=== PATIENT | male | born 1965 | race American Indian/Alaskan Native ===

== ENCOUNTER 2017-11-02 16:54 | Emergency (ER) | payer SELFPAY ==
--- NOTE | 2017-11-02 18:05 | XRay Report ---
FINAL REPORT EXAM: XR CHEST ROUTINE 2V HISTORY: Shortness of breath TECHNIQUE: Frontal and lateral chest radiographs. PRIORS: 06/23/2017. FINDINGS: Cardiomegaly is again noted, mildly improved since the prior study. No pulmonary edema. No focal consolidation. No pleural effusion. No pneumothorax. No acute osseous abnormality. IMPRESSION: No acute cardiopulmonary process. Improved cardiomegaly.
[2017-11-02] MEDS ORDERED: DUONEB *Not for PRN Use IH ONE (18:35)
--- NOTE | 2017-11-02 18:40 | Emergency Department Report ---
ED Shortness of Breath HPI - General Chief Complaint: Dyspnea/Respdistress Stated Complaint: SOB/CHEST TIGHTNESS Time Seen by Provider: 11/02/17 18:16 Source: patient Mode of arrival: Ambulatory Limitations: No Limitations - History of Present Illness Initial Comments: Mr Lund is a 52 year-old man with hx of CHf, afib, COPD who presents with shortness of breath. has been having symptoms for the last few days. Gradualyl worsening. Has been having trouble sleeping, wakes up and needs to sit up to catch his breath. Today when he left the house around 2-3pm, felt light headed like he was going to pass out. Improved with sitting. No chest pain. Just shortness of breath. Is anticoagulated. Is about 10lbs above his dry weight. Endorses dry cough. No fevers. Good appetite. no leg swelling. Some stomach swelling. No SHRESTHA, no weakness, no tingling. MD Complaint: shortness of breath -: Gradual Severity: mild Improves With: rest, upright position Known History Of: COPD, congestive heart failure Treatments Prior to Arrival: none - Related Data Home Oxygen Therapy: Yes Home Oxygen Amount: 3 Liters Home Medications Medication Instructions Recorded Confirmed Last Taken Apixaban [Eliquis] 50 mg PO BID 06/24/17 11/02/17 11/02/17 AtorvaSTATin [Lipitor] 40 mg PO QHS 06/24/17 11/02/17 11/02/17 Carvedilol [Coreg] 25 mg PO BID 06/24/17 11/02/17 11/02/17 Famotidine [Heartburn Prevention] 20 mg PO DAILY 06/24/17 11/02/17 11/02/17 Isosorbide Dinitrate [Isordil 20 mg PO TID 06/24/17 11/02/17 11/02/17 Titradose] Spironolactone [Aldactone] 50 mg PO QDAY 06/24/17 11/02/17 11/02/17 hydrALAZINE [Apresoline TAB] 100 mg PO TID 06/24/17 11/02/17 11/02/17 Amlodipine Besylate 5 mg PO DAILY 11/02/17 11/02/17 11/02/17 Benzonatate [Tessalon Perle] 100 mg PO PRN PRN 11/02/17 11/02/1711/01/18 Fluticasone [Flonase] 50 mcg INNOSTRIL PRN 11/02/17 11/02/17 11/02/17 Furosemide [Lasix TAB] 40 mg PO DAILY 11/02/17 11/02/17 11/02/17 Nicotine [Nicotine Patch] 14 mg TD DAILY 11/02/17 11/02/17 11/01/17 Polyethylene Glycol 3350 17 gm PO DAILY 11/02/17 11/02/17 Unknown [Smoothlax] Sertraline [Zoloft] 100 mg PO QDAY 11/02/17 11/02/17 11/02/17 Symbicort 160-4.5 Mcg Inhaler 2 inhalation IH PRN PRN 11/02/17 11/02/17 11/02/17 Allergies Allergy/AdvReac Type Severity Reaction Status Date / Time No Known Allergies Allergy Unverified 06/23/17 17:32 ED Review of Systems ROS: Stated complaint: SOB/CHEST TIGHTNESS Other details as noted in HPI Comment: All other systems reviewed and negative ED Past Medical Hx - Past Medical History Previous Medical History?: Yes Hx Congestive Heart Failure: Yes Hx Diabetes: No Hx Asthma: No Hx COPD: Yes (3L per [place]) Additional medical history: irregular heart rythm - Surgical History Past Surgical History?: No - Social History Smoking Status: Former Smoker Substance Use Type: Alcohol - Medications Home Medications: Home Medications Medication Instructions Recorded Confirmed Last Taken Type Apixaban [Eliquis] 50 mg PO BID 06/24/17 11/02/17 11/02/17 History AtorvaSTATin [Lipitor] 40 mg PO QHS 06/24/17 11/02/17 11/02/17 History Carvedilol [Coreg] 25 mg PO BID 06/24/17 11/02/17 11/02/17 History Famotidine [Heartburn Prevention] 20 mg PO DAILY 06/24/17 11/02/17 11/02/17 History Isosorbide Dinitrate [Isordil 20 mg PO TID 06/24/17 11/02/17 11/02/17 History Titradose] Spironolactone [Aldactone] 50 mg PO QDAY 06/24/17 11/02/17 11/02/17 History hydrALAZINE [Apresoline TAB] 100 mg PO TID 06/24/17 11/02/17 11/02/17 History Amlodipine Besylate 5 mg PO DAILY 11/02/17 11/02/17 11/02/17 History Benzonatate [Tessalon Perle] 100 mg PO PRN PRN 11/02/17 11/02/17 11/01/17 History Fluticasone [Flonase] 50 mcg INNOSTRIL PRN 11/02/17 11/02/17 11/02/17 History Furosemide [Lasix TAB] 40 mg PO DAILY 11/02/17 11/02/17 11/02/17 History Nicotine [Nicotine Patch] 14 mg TD DAILY 11/02/17 11/02/17 11/01/17 History Polyethylene Glycol 3350 17 gm PO DAILY 11/02/17 11/02/17 Unknown History [Smoothlax] Sertraline [Zoloft] 100 mg PO QDAY 11/02/17 11/02/17 11/02/17 History Symbicort 160-4.5 Mcg Inhaler 2 inhalation IH PRN PRN 11/02/17 11/02/17 History ED Physical Exam - General Limitations: No Limitations General appearance: alert, in no apparent distress - Head Head exam: Present: atraumatic, normocephalic - Eye Eye exam: Present: normal appearance - ENT ENT exam: Present: normal exam, mucous membranes moist - Neck Neck exam: Present: normal inspection. Absent: tenderness - Respiratory Respiratory exam: Present: other (Wheeze R upper larios, otherwise good air movement). Absent: rales, accessory muscle use - Cardiovascular Cardiovascular Exam: Present: regular rate, normal rhythm. Absent: systolic murmur, diastolic murmur, rubs, gallop - GI/Abdominal GI/Abdominal exam: Present: soft, distended. Absent: tenderness, guarding - Rectal Rectal exam: Present: deferred - Extremities Exam Extremities exam: Present: normal inspection. Absent: pedal edema, calf tenderness - Back Exam Back exam: Present: normal inspection - Neurological Exam Neurological exam: Present: alert, oriented X3 - Psychiatric Psychiatric exam: Present: normal affect, normal mood - Skin Skin exam: Present: warm, dry, intact, normal color. Absent: rash ED Course Vital Signs 11/02/17 11/02/17 11/02/17 16:58 18:55 19:15 Temperature 97.6 F 98 F Pulse Rate 72 64 Pulse Rate [ Anterior Bilateral Throughout] Respiratory 19 Rate Respiratory Rate [Anterior Bilateral Throughout] Blood Pressure 105/46 Blood Pressure 126/80 [Left] O2 Sat by Pulse 92 98 99 Oximetry 11/02/17 11/02/17 11/02/17 19:35 19:45 20:00 Temperature Pulse Rate 56 L Pulse Rate [ 65 70 Anterior Bilateral Throughout] Respiratory 20 Rate Respiratory 20 18 Rate [Anterior Bilateral Throughout] Blood Pressure 132/67 Blood Pressure [Left] O2 Sat by Pulse 86 Oximetry ED Medical Decision Making - Lab Data Result diagrams: 11/02/17 19:09 11/02/17 19:09 Lab Results 11/02/17 11/02/17 11/02/17 Range/Units 19:09 19:09 19:09 WBC 9.3 (4.5-11.0) K/mm3 RBC 5.03 (3.65-5.03) M/mm3 Hgb 13.7 (11.8-15.2) gm/dl Hct 42.8 (35.5-45.6) % MCV 85 (84-94) fl MCH 27 L (28-32) pg MCHC 32 (32-34) % RDW 17.1 H (13.2-15.2) % Plt Count 137 L (140-440) K/mm3 Lymph % (Auto) 15.8 (13.4-35.0) % [place] % (Auto) 8.4 H (0.0-7.3) % Eos % (Auto) 1.8 (0.0-4.3) % Baso % (Auto) 0.5 (0.0-1.8) % Lymph # 1.5 (1.2-5.4) K/mm3 [place] # 0.8 (0.0-0.8) K/mm3 Eos # 0.2 (0.0-0.4) K/mm3 Baso # 0.0 (0.0-0.1) K/mm3 Seg Neutrophils % 73.5 H (40.0-70.0) % Seg Neutrophils # 6.8 (1.8-7.7) K/mm3 PT 14.0 (12.2-14.9) Sec. INR 1.03 (0.87-1.13) APTT 30.3 (24.2-36.6) Sec. Sodium (137-145) mmol/L Potassium (3.6-5.0) mmol/L Chloride (98-107) mmol/L Carbon Dioxide (22-30) mmol/L Anion Gap mmol/L BUN (9-20) mg/dL Creatinine (0.8-1.5) mg/dL Estimated GFR ml/min BUN/Creatinine Ratio % Glucose (75-100) mg/dL Calcium (8.4-10.2) mg/dL Magnesium (1.7-2.3) mg/dL Total Bilirubin (0.1-1.2) mg/dL AST (5-40) units/L ALT (7-56) units/L Alkaline Phosphatase (35-129) units/L Troponin T 0.029 (0.00-0.029) ng/mL NT-Pro-B Natriuret Pep (0-900) pg/mL Total Protein (6.3-8.2) g/dL Albumin (3.9-5) g/dL Albumin/Globulin Ratio % //18 Range/Units 19:09 WBC (4.5-11.0) K/mm3 RBC (3.65-5.03) M/mm3 Hgb (11.8-15.2) gm/dl Hct (35.5-45.6) % MCV (84-94) fl MCH (28-32) pg MCHC (32-34) % RDW (13.2-15.2) % Plt Count (140-440) K/mm3 Lymph % (Auto) (13.4-35.0) % [place] % (Auto) (0.0-7.3) % Eos % (Auto) (0.0-4.3) % Baso % (Auto) (0.0-1.8) % Lymph # (1.2-5.4) K/mm3 [place] # (0.0-0.8) K/mm3 Eos # (0.0-0.4) K/mm3 Baso # (0.0-0.1) K/mm3 Seg Neutrophils % (40.0-70.0) % Seg Neutrophils # (1.8-7.7) K/mm3 PT (12.2-14.9) Sec. INR (0.87-1.13) APTT (24.2-36.6) Sec. Sodium 143 (137-145) mmol/L Potassium 4.5 (3.6-5.0) mmol/L Chloride 103.8 (98-107) mmol/L Carbon Dioxide 24 (22-30) mmol/L Anion Gap 20 mmol/L BUN 48 H (9-20) mg/dL Creatinine 2.0 H (0.8-1.5) mg/dL Estimated GFR 43 ml/min BUN/Creatinine Ratio 24 % Glucose 94 (75-100) mg/dL Calcium 10.0 (8.4-10.2) mg/dL Magnesium 1.90 (1.7-2.3) mg/dL Total Bilirubin 0.50 (0.1-1.2) mg/dL AST 39 (5-40) units/L ALT 58 H (7-56) units/L Alkaline Phosphatase 115 (35-129) units/L Troponin T (0.00-0.029) ng/mL NT-Pro-B Natriuret Pep 1605 H (0-900) pg/mL Total Protein 7.2 (6.3-8.2) g/dL Albumin 4.1 (3.9-5) g/dL Albumin/Globulin Ratio 1.3 % - EKG Data -: EKG Interpreted by Nv - EKG Data 1702; HR 66, sinus, normal axis, QTc 458, no ST changes concerning for acute ischemia 2014; HR 62, sinus, normal axis, QTc 478, no St changes concerning for acute ischemia - Radiology Data Radiology results: report reviewed, image reviewed - Medical Decision Making Mr Lund is a 52 year-old man with hx of COPD, CHF who presents with shortness of breath. Some symptoms consistent with fluid retention. Is on his baseline 3L home O2 with normal VS. Exam with mild wheezing on R. No rales. Suspect this is CHF vs COPD vs ACS. EKG and trop non-ischemic. CXR clear. Labs with Cr elevated but at baseline. Elevated BNP with normal K. Repeat EKG and trop neg. Reports feeling better after breathing treatment, has albuterol at home as well. Has pcp Appt in 6 days. Given 80mg IV lasix here. Will recommend he take 120mg lasix (home dose 80) every other day until he sees his pcp. This will be Wednesday, Wednesday and Wednesday. Will give RX for 20meq KCl at home these same days as well. Given care instructions and return precautions. Safe for DC to home. Critical care attestation.: If time is entered above; I have spent that time in minutes in the direct care of this critically ill patient, excluding procedure time. ED Disposition Clinical Impression: Wheezing Acute exacerbation of CHF (congestive heart failure) Qualifiers: Heart failure type: unspecified Qualified Code(s): I50.9 - Heart failure, unspecified CHF (congestive heart failure) Qualifiers: Heart failure type: unspecified Heart failure chronicity: unspecified Qualified Code(s): I50.9 - Heart failure, unspecified Disposition: DC-01 TO HOME OR SELFCARE Is pt being admited?: No Does the pt Need Aspirin: No Condition: Stable Additional Instructions: Please take 1.5 tablets of your lasix on Wednesday, Wednesday and Wednesday. On these days, please also take a potassium supplement prescription we have provided. Please urgently return for chest pain, increased difficulty breathing. Please see your doctor on November 09 as planned. Referrals: PRIMARY CARE, [Primary Care Provider] - 3-5 Days
[2017-11-02 19:34] LABS: Basophils % (Auto) 0.5 % (0.0-1.8); Eosinophils # (Auto) 0.2 K/mm3 (0.0-0.4); Eosinophils % (Auto) 1.8 % (0.0-4.3); Hematocrit 42.8 % (35.5-45.6); Hemoglobin 13.7 gm/dl (11.8-15.2); Lymphocytes # (Auto) 1.5 K/mm3 (1.2-5.4); Lymphocytes % (Auto) 15.8 % (13.4-35.0); Mean Corpuscular HGB Conc 32 % (32-34); Mean Corpuscular Hemoglobin 27 pg (28-32); Mean Corpuscular Volume 85 fl (84-94); Monocytes # (Auto) 0.8 K/mm3 (0.0-0.8); Monocytes % (Auto) 8.4 % (0.0-7.3); Platelet Count 137 K/mm3 (140-440); Red Blood Count 5.03 M/mm3 (3.65-5.03); Red Cell Distribution Width 17.1 % (13.2-15.2)
[2017-11-02 19:44] LABS: INR 1.03 (0.87-1.13)
[2017-11-02 19:45] LABS: Partial Thromboplastin Time 30.3 Sec. (24.2-36.6)
[2017-11-02 19:50] LABS: Albumin 4.1 g/dL (3.9-5)
[2017-11-02] MEDS ORDERED: LASIX IV ONE (20:25)
[2017-11-02 22:01] VITALS: BP 137/68
== END 2017-11-02 22:17 | disposition home or self-care (01) ==
LOC: ED 16:54
DX: I11.0 Hypertensive heart disease with heart failure (principal); I50.9 Heart failure, unspecified; J44.9 Chronic obstructive pulmonary disease, unspecified; Z87.891 Personal history of nicotine dependence
CPT/HCPCS: 36415; 71046; 80053; 83735; 83880; 84484; 85025; 85610; 85730; 93005; 93010; 94640; 96374; 99284; J1940

== ENCOUNTER 2018-09-14 19:24 | Inpatient (IN) | payer MEDICAID ==
[2018-09-14] MEDS ORDERED: PROVENTIL IH ONE (20:26)
[2018-09-14] MEDS ORDERED: ATROVENT IH ONE (20:26)
[2018-09-14] MEDS ORDERED: SOLU-Medrol IV ONE (20:26)
[2018-09-14] MEDS ORDERED: LASIX IV ONE (20:27)
--- NOTE | 2018-09-14 20:31 | Emergency Department Report ---
ED Shortness of Breath HPI - General Chief Complaint: Dyspnea/Respdistress Stated Complaint: MALI Time Seen by Provider: 09/14/18 20:22 Source: patient Mode of arrival: Ambulatory Limitations: No Limitations - History of Present Illness Initial Comments: Patient is 53 years old male with history of COPD and congestive heart failure. Patient presented to the ER complaining of shortness of breath, orthopnea since 2 days ago. Patient stated that he is having trouble sleeping last night. Patient stated that he is out of his oxygen. Patient is taking 3 L of oxygen. She denies any chest pain. No fever chills. MD Complaint: shortness of breath, cough - Related Data Home Medications Medication Instructions Recorded Confirmed Last Taken Apixaban [Eliquis] 50 mg PO BID 06/24/17 11/02/17 11/02/17 AtorvaSTATin [Lipitor] 40 mg PO QHS 06/24/17 11/02/17 11/02/17 Carvedilol [Coreg] 25 mg PO BID 06/24/17 11/02/17 11/02/17 Famotidine [Heartburn Prevention] 20 mg PO DAILY 06/24/17 11/02/17 11/02/17 Isosorbide Dinitrate [Isordil 20 mg PO TID 06/24/17 11/02/17 11/02/17 Titradose] Spironolactone [Aldactone] 50 mg PO QDAY 06/24/17 11/02/17 11/02/17 hydrALAZINE [Apresoline TAB] 100 mg PO TID 06/24/17 11/02/17 11/02/17 Amlodipine Besylate 5 mg PO DAILY 11/02/17 11/02/17 11/02/17 Benzonatate [Tessalon Perle] 100 mg PO PRN PRN 11/02/17 11/02/17 11/01/17 Fluticasone [Flonase] 50 mcg INNOSTRIL PRN 11/02/17 11/02/17 11/02/17 Furosemide [Lasix TAB] 40 mg PO DAILY 11/02/17 11/02/17 11/02/17 Nicotine [Nicotine Patch] 14 mg TD DAILY 11/02/17 11/02/17 11/01/17 Polyethylene Glycol 3350 17 gm PO DAILY 11/02/17 11/02/17 Unknown [Smoothlax] Sertraline [Zoloft] 100 mg PO QDAY 11/02/17 11/02/17 11/02/17 Symbicort 160-4.5 Mcg Inhaler 2 inhalation IH PRN PRN 11/02/17 11/02/17 11/02/17 Previous Rx's Medication Instructions Recorded Last Taken Type Potassium Chloride [K-Dur] 20 meq PO QDAY 3 Days #3 tablet 11/02/17 Unknown Rx Allergies Allergy/AdvReac Type Severity Reaction Status Date / Time No Known Allergies Allergy Unverified 06/23/17 17:32 ED Review of Systems ROS: Stated complaint: MALI Other details as noted in HPI Comment: All other systems reviewed and negative Constitutional: denies: chills, fever Respiratory: cough, orthopnea, shortness of breath, SOB with exertion, SOB at rest, wheezing Cardiovascular: denies: chest pain, palpitations Gastrointestinal: denies: abdominal pain, nausea Musculoskeletal: denies: back pain Neurological: denies: headache, weakness, numbness, paresthesias, confusion ED Past Medical Hx - Past Medical History Hx Congestive Heart Failure: Yes Hx Diabetes: No Hx Asthma: No Hx COPD: Yes (3L per [place]) Additional medical history: irregular heart rythm - Social History Smoking Status: Former Smoker Substance Use Type: None - Medications Home Medications: Home Medications Medication Instructions Recorded Confirmed Last Taken Type Apixaban [Eliquis] 50 mg PO BID 06/24/17 11/02/17 11/02/17 History AtorvaSTATin [Lipitor] 40 mg PO QHS 06/24/17 11/02/17 11/02/17 History Carvedilol [Coreg] 25 mg PO BID 06/24/17 11/02/17 11/02/17 History Famotidine [Heartburn Prevention] 20 mg PO DAILY 06/24/17 11/02/17 11/02/17 History Isosorbide Dinitrate [Isordil 20 mg PO TID 06/24/17 11/02/17 11/02/17 History Titradose] Spironolactone [Aldactone] 50 mg PO QDAY 06/24/17 11/02/17 11/02/17 History hydrALAZINE [Apresoline TAB] 100 mg PO TID 06/24/17 11/02/17 11/02/17 History Amlodipine Besylate 5 mg PO DAILY 11/02/17 11/02/17 11/02/17 History Benzonatate [Tessalon Perle] 100 mg PO PRN PRN 11/02/17 11/02/17 11/01/17 History Fluticasone [Flonase] 50 mcg INNOSTRIL PRN 11/02/17 11/02/17 11/02/17 History Furosemide [Lasix TAB] 40 mg PO DAILY 11/02/17 11/02/17 11/02/17 History Nicotine [Nicotine Patch] 14 mg TD DAILY 11/02/17 11/02/17 11/01/17 History Polyethylene Glycol 3350 17 gm PO DAILY 11/02/17 11/02/17 Unknown History [Smoothlax] Potassium Chloride [K-Dur] 20 meq PO QDAY 3 Days #3 tablet 11/02/17 Unknown Rx Sertraline [Zoloft] 100 mg PO QDAY 11/02/17 11/02/17 11/02/17 History Symbicort 160-4.5 Mcg Inhaler 2 inhalation IH PRN PRN 11/02/17 11/02/17 11/02/17 History ED Physical Exam - General Limitations: No Limitations General appearance: alert, in distress - Head Head exam: Present: atraumatic, normocephalic, normal inspection - Eye Eye exam: Present: normal appearance - ENT ENT exam: Present: normal exam, normal orophraynx, mucous membranes moist - Neck Neck exam: Present: normal inspection, full ROM. Absent: tenderness, meningismus, lymphadenopathy, thyromegaly - Respiratory Respiratory exam: Present: respiratory distress, wheezes, rales, rhonchi, accessory muscle use, decreased breath sounds, prolonged expiratory. Absent: stridor - Cardiovascular Cardiovascular Exam: Present: regular rate, normal rhythm, normal heart sounds - GI/Abdominal GI/Abdominal exam: Present: soft, normal bowel sounds. Absent: distended, t enderness, guarding, rebound, rigid, bruit, pulsatile mass - Extremities Exam Extremities exam: Present: normal inspection, full ROM, normal capillary refill, pedal edema. Absent: calf tenderness - Back Exam Back exam: Present: normal inspection, full ROM. Absent: tenderness, CVA tenderness (R), CVA tenderness (L), muscle spasm, paraspinal tenderness, vertebral tenderness - Neurological Exam Neurological exam: Present: alert, oriented X3, CN II-XII intact - Skin Skin exam: Present: warm, intact, normal color ED Course Vital Signs 09/14/18 09/14/18 09/14/18 19:32 20:20 20:54 Temperature 98.0 F 98 F Pulse Rate 72 71 Pulse Rate [ 72 Anterior Bilateral Throughout] Respiratory 22 19 Rate Respiratory 27 H Rate [Anterior Bilateral Throughout] Blood Pressure 144/47 Blood Pressure 136/67 [Right] O2 Sat by Pulse 89 94 Oximetry 09/14/18 21:41 Temperature Pulse Rate Pulse Rate [ 90 Anterior Bilateral Throughout] Respiratory Rate Respiratory 28 H Rate [Anterior Bilateral Throughout] Blood Pressure Blood Pressure [Right] O2 Sat by Pulse Oximetry ED Medical Decision Making - Lab Data Result diagrams: 09/14/18 20:38 09/14/18 20:38 - EKG Data -: EKG Interpreted by Wy EKG shows normal: sinus rhythm Rate: normal - EKG Data Interpretation: no acute changes - Radiology Data Radiology results: report reviewed Chest x-ray showed pulmonary congestion. - Medical Decision Making Patient is 53 years old male with history of COPD and congestive heart failure. Patient presented to the ER complaining of shortness of breath, orthopnea since 2 days ago. Patient stated that he is having trouble sleeping last night. Patient stated that he is out of his oxygen. Patient is taking 3 L of oxygen. She denies any chest pain. No fever chills. Patient EKG didn't show any ST elevation. Chest x-ray showed pulmonary c ongestion consistent with CHF exacerbation. Patient troponin slightly elevated. I discussed the patient is Dr. Kang. I discussed the patient is Dr. Naty Arango, she agreed to admit the patient to medical service. Critical Care Time: Yes Critical care time in (mins) excluding proc time.: 30 Critical care attestation.: If time is entered above; I have spent that time in minutes in the direct care of this critically ill patient, excluding procedure time. ED Disposition Clinical Impression: Elevated troponin, CHF exacerbation Disposition: OP ADMIT IP TO THIS HOSP Is pt being admited?: Yes Condition: Stable
[2018-09-14 21:11] LABS: Basophils % (Auto) 0.3 % (0.0-1.8); Eosinophils # (Auto) 0.1 K/mm3 (0.0-0.4); Eosinophils % (Auto) 1.7 % (0.0-4.3); Hematocrit 41.7 % (35.5-45.6); Hemoglobin 13.3 gm/dl (11.8-15.2); Lymphocytes # (Auto) 1.2 K/mm3 (1.2-5.4); Mean Corpuscular HGB Conc 32 % (32-34); Mean Corpuscular Volume 85 fl (84-94); Monocytes # (Auto) 0.7 K/mm3 (0.0-0.8); Platelet Count 188 K/mm3 (140-440); Red Blood Count 4.92 M/mm3 (3.65-5.03); Red Cell Distribution Width 18.3 % (13.2-15.2)
--- NOTE | 2018-09-14 21:11 | XRay Report ---
PROCEDURE: XR CHEST 1V AP TECHNIQUE: Chest radiograph single view. HISTORY: Dyspnea COMPARISONS: November 02, 2017 . FINDINGS: Heart: Mild cardiomegaly is noted. Mediastinum/Vessels: There is mild degree pulmonary venous congestion. Lungs/Pleural space: Normal. Bony thorax: No acute osseous abnormality. Life support devices: None. IMPRESSION: Mild degree cardiomegaly with mild degree pulmonary venous congestion. This document is electronically signed by Dejuan Briggs MD., Sep 14 2018 09:09:32 PM ET
[2018-09-14 21:18] LABS: INR 1.22 (0.87-1.13)
[2018-09-14 21:25] LABS: Calcium 9.5 mg/dL (8.4-10.2)
[2018-09-14] MEDS ORDERED: BABY ASPIRIN PO ONE (22:15)
[2018-09-14 22:41] LABS: Chol/HDL Ratio 2.94 %
--- NOTE | 2018-09-14 23:26 | History and Physical Report ---
History of Present Illness Date of examination: 09/14/18 History of present illness: 53 year-old man with history of hypertension, A. fib, CHF, COPD and chronic kidney disease, comes to emergency room with complaints of shortness of breath, PND, orthropnea since yesterday. He went out today without wearing his oxygen, his symptoms worsen, came to the emergency room for further evaluation. Non- Compliant with fluid restriction Review Of Systems: Constitutional: no weight loss Ears, eyes, nose, mouth and throat: no nasal congestion, no nasal discharge, no sinus pressure, blurry vision, diplopia Neck: No neck pain or rigidity. Cardiovascular: No palpitations, chest pain Respiratory: No cough Gastrointestinal: No abdominal pain, hematochezia Genitourinary : no dysuria, frequency , hematuria Musculoskeletal: no muscle ache Integumentary: no rash, no pruritis Neurological: no parathesias, focal weakness Endocrine: no cold or heat intolerance, no polyuria or polydipsia Hematologic/Lymphatic: no easy bruising, no easy bleeding, no gland swelling Allergic/Immunologic: no urticaria, no angioedema. PAST MEDICAL HISTORY: CHF, A. fib, hypertension, COPD,chronic kidney disease PAST SURGICAL HISTORY:none SOCIAL HISTORY:1 pack a day, social alcohol, no drugs FAMILY HISTORY:Hypertension Medications and Allergies Allergies Allergy/AdvReac Type Severity Reaction Status Date / Time No Known Allergies Allergy Unverified 06/23/17 17:32 Home Medications Medication Instructions Recorded Confirmed Last Taken Type Apixaban [Eliquis] 50 mg PO BID 06/24/17 11/02/17 11/02/17 History AtorvaSTATin [Lipitor] 40 mg PO QHS 06/24/17 11/02/17 11/02/17 History Carvedilol [Coreg] 25 mg PO BID 06/24/17 11/02/17 11/02/17 History Famotidine [Heartburn Prevention] 20 mg PO DAILY 06/24/17 11/02/17 11/02/17 History Isosorbide Dinitrate [Isordil 20 mg PO TID 06/24/17 11/02/17 11/02/17 History Titradose] Spironolactone [Aldactone] 50 mg PO QDAY 06/24/17 11/02/17 11/02/17 History hydrALAZINE [Apresoline TAB] 100 mg PO TID 06/24/17 11/02/17 11/02/17 History Amlodipine Besylate 5 mg PO DAILY 11/02/17 11/02/17 11/02/17 History Benzonatate [Tessalon Perle] 100 mg PO PRN PRN 11/02/17 11/02/17 11/01/17 History Fluticasone [Flonase] 50 mcg INNOSTRIL PRN 11/02/17 11/02/17 11/02/17 History Furosemide [Lasix TAB] 40 mg PO DAILY 11/02/17 11/02/17 11/02/17 History Nicotine [Nicotine Patch] 14 mg TD DAILY 11/02/17 11/02/17 11/01/17 History Polyethylene Glycol 3350 17 gm PO DAILY 11/02/17 11/02/17 Unknown History [Smoothlax] Potassium Chloride [K-Dur] 20 meq PO QDAY 3 Days #3 tablet 11/02/17 Unknown Rx Sertraline [Zoloft] 100 mg PO QDAY 11/02/17 11/02/17 11/02/17 History Symbicort 160-4.5 Mcg Inhaler 2 inhalation IH PRN PRN 11/02/17 11/02/17 11/02/17 History Exam - Physical Exam Narrative exam: Gen. appearance: Patient lying in bed, no apparent distress HEENT: Normocephalic, atraumatic, pupils equally round and reactive to light, extraocular movement intact, and no sclericterus,. No JVD or thyromegaly or nodule,neck supple, no carotid bruit ,mucous membranes moist, no exudate or erythema Heart: S1, S2, regular rate and rhythm Lungs:crackles auscultation bilaterally, breathing comfortable Abdomen: Positive bowel sounds, nontender, nondistended, no organomegaly Extremity: trace edema, no cyanosis, clubbing Skin: No rash, nodules, warm, dry Neuro: Oriented 3, cranial nerves II-12 intact, speech is fluent, motor and sensory intact - Constitutional Vitals: Temp Pulse Resp BP Pulse Ox 97.5 F L 67 14 133/77 95 09/14/18 22:56 09/14/18 22:56 09/14/18 22:56 09/14/18 22:56 09/14/18 22:56 Results - Labs CBC & Chem 7: 09/14/18 20:38 09/14/18 20:38 Labs: Abnormal lab results 09/14/18 09/14/18 09/14/18 Range/Units 20:38 20:38 20:38 MCH 27 L (28-32) pg RDW 18.3 H (13.2-15.2) % [place] % (Auto) 9.0 H (0.0-7.3) % Seg Neutrophils % 73.0 H (40.0-70.0) % PT 16.2 H (12.2-14.9) Sec. INR 1.22 H (0.87-1.13) Sodium 146 H (137-145) mmol/L Potassium 3.5 L (3.6-5.0) mmol/L BUN 34 H (9-20) mg/dL Creatinine 2.1 H (0.8-1.5) mg/dL Glucose 149 H (75-100) mg/dL Troponin T 0.033 H (0.00-0.029) ng/mL HDL Cholesterol 34 L (40-59) mg/dL - Imaging and Cardiology EKG: report reviewed Chest x-ray: report reviewed Assessment and Plan Assessment CHF, acute on chronic Elevated troponin A. fib Hypertension COPD chronic kidney disease Plan Admit to medicine Diurese with IV Lasix Monitor I's and O's, daily weights Check cardiac enzymes, echo, consult cardiology Start beta gary, aspirin, hold JAILYN inhibitor Continue outpatient medications DVT prophylaxis
[2018-09-14] MEDS ORDERED: ZOFRAN IV PRN (23:59)
[2018-09-14] MEDS ORDERED: SODIUM CHLORIDE FLUSH SYRINGE 10 ML IV PRN (23:59)
[2018-09-14] MEDS ORDERED: TYLENOL PO PRN (23:59)
[2018-09-15 01:47] LABS: Creatine Kinase MB 2.1 ng/mL (0.0-4.0)
[2018-09-15] MEDS: LASIX IV SCH ×2 (05:58→17:51)
[2018-09-15 07:26] LABS: Hematocrit 45.2 % (35.5-45.6); Hemoglobin 14.4 gm/dl (11.8-15.2); Mean Corpuscular HGB Conc 32 % (32-34); Mean Corpuscular Volume 85 fl (84-94); Platelet Count 211 K/mm3 (140-440); Red Blood Count 5.32 M/mm3 (3.65-5.03); Red Cell Distribution Width 18.1 % (13.2-15.2)
[2018-09-15 07:39] LABS: Creatine Kinase MB 2.7 ng/mL (0.0-4.0)
[2018-09-15 08:54] LABS: Basophils % (Manual) 0 % (0.0-1.8); Eosinophils % (Manual) 0 % (0.0-4.3); Giant Platelets Rare; Platelet Estimate Consistent w Auto; Total Cells Counted 100
[2018-09-15] MEDS ORDERED: LOVENOX SUB-Q SCH ×2 (10:00)
[2018-09-15] MEDS: SODIUM CHLORIDE FLUSH SYRINGE 10 ML IV SCH ×2 (10:00→22:33)
[2018-09-15] MEDS ORDERED: TESSALON PERLES PO PRN (10:00)
[2018-09-15] MEDS ORDERED: SYMBICORT IH PRN (10:58)
[2018-09-15] MEDS ORDERED: NON-FORMULARY (Amlodipine Besylate 5 MG) PO SCH (11:00)
[2018-09-15] MEDS ORDERED: FLONASE NS SCH (11:00)
--- NOTE | 2018-09-15 13:22 | Consultation ---
History of Present Illness Consult date: 09/15/18 Requesting physician: NUBIA CROCKER Consult reason: abnormal cardiac enzymes, congestive heart failure History of present illness: the pt is a 53 YO male with a past medical history significant for CMP with EF 25%, HFrEF, paroxysmal atrial flutter on Eliquis, HTN, CKD, COPD on home O2, newly diagnosed SADE (has not had CPAP set up at home yet), pulmonary HTN, tobacco use, prior ETOH use and cocaine use. He has been seen by our practice on prior admissions and states that he is regularly followed by Dr. Markell Garcia with [facility]. He presented with complaints of SOB, LUCAS, PND and orthopnea for 2 days prior to arrival. He also reports abdominal swelling for the past several days. He denies any chest pain, palpitations, n/v, diaphoresis, dizziness or syncope. Pt reports compliance with his home medication regimen and denies any recent ETOH or illicit drug use. Echo done at [place] 05/29/2017 showed EF 25%, AV sclerosis, mod dilated LA, mod LVH, small pericardial effusion, mod dilated RA, grade 3 diastolic dysfunction, mild TR, mild MVR, moderately enlarged RV cavity size, moderately reduced RV systolic function, pulmonary HTN with RVSP 56.7mmHg. Pt underwent pharmacologic MPI stress test at [place] in 04/2017 which was negative for ischemia, EF 35%. Of note, pt was discharged from [facility] in 06/[address]. He states that he temporarily moved to [place] after that hospitalization and was told by a faculty neuropsychologist in [place] that his heart function improved on f/u echo and Life Vest was discontinued. He believes his last echo was in [place] in 10/2017. Past History Past Medical History: atrial fib, COPD, heart failure, hypertension, other (SADE) Medications and Allergies Allergies Allergy/AdvReac Type Severity Reaction Status Date / Time No Known Allergies Allergy Unverified 06/23/17 17:32 Home Medications Medication Instructions Recorded Confirmed Last Taken Type Apixaban [Eliquis] 50 mg PO BID 06/24/17 09/15/18 11/02/17 History AtorvaSTATin [Lipitor] 40 mg PO QHS 06/24/17 09/15/18 11/02/17 History Carvedilol [Coreg] 25 mg PO BID 06/24/17 09/15/18 11/02/17 History Famotidine [Heartburn Prevention] 20 mg PO DAILY 06/24/17 09/15/18 11/02/17 History Isosorbide Dinitrate [Isordil 20 mg PO TID 06/24/17 09/15/18 11/02/17 History Titradose] Spironolactone [Aldactone] 50 mg PO QDAY 06/24/17 09/15/18 11/02/17 History hydrALAZINE [Apresoline TAB] 100 mg PO TID 06/24/17 09/15/18 11/02/17 History Amlodipine Besylate 5 mg PO DAILY 11/02/17 09/15/18 11/02/17 History Benzonatate [Tessalon Perle] 100 mg PO PRN PRN 11/02/17 09/15/18 11/01/17 History Fluticasone [Flonase] 50 mcg INNOSTRIL PRN 11/02/17 09/15/18 11/02/17 History Furosemide [Lasix TAB] 40 mg PO DAILY 11/02/17 09/15/18 11/02/17 History Nicotine [Nicotine Patch] 14 mg TD DAILY 11/02/17 09/15/18 11/01/17 History Polyethylene Glycol 3350 17 gm PO DAILY 11/02/17 09/15/18 Unknown History [Smoothlax] Potassium Chloride [K-Dur] 20 meq PO QDAY 3 Days #3 tablet 11/02/17 09/15/18 Unknown Rx Sertraline [Zoloft] 100 mg PO QDAY 11/02/17 09/15/18 11/02/17 History Symbicort 160-4.5 Mcg Inhaler 2 inhalation IH PRN PRN 11/02/17 09/15/18 11/02/17 History Active Meds: Active Medications Acetaminophen (Tylenol) 650 mg PO Q4H PRN PRN Reason: Pain MILD(1-3)/Fever >100.5/SHRESTHA Amlodipine Besylate (Norvasc) 5 mg PO QDAY RONDA Apixaban (Eliquis) 5 mg PO BID RONDA; Protocol Arformoterol Tartrate (Brovana Nebu) 15 mcg IH Q12HRT RONDA Atorvastatin Calcium (Lipitor) 40 mg PO QHS RONDA Benzonatate (Tessalon Perles) 100 mg PO Q8H PRN PRN Reason: Cough Budesonide (Pulmicort) 1 mg IH Q12HRT [facility] Famotidine (Pepcid) 20 mg PO DAILY [facility] Fluticasone Propionate (Flonase) 50 mcg NS PRN [facility] Furosemide (Lasix) 40 mg IV BID@0600,1800 [facility] Last Admin: 09/15/18 05:58 Dose: 40 mg Documented by: Hydralazine HCl (Apresoline) 100 mg PO TID [facility] Isosorbide Dinitrate (Isordil Titradose) 20 mg PO TID [facility] Nicotine (Habitrol) 14 mg TD DAILY [facility] Ondansetron HCl (Zofran) 4 mg IV Q8H PRN PRN Reason: Nausea And Vomiting Oxycodone/Acetaminophen (Percocet 5/325) 1 tab PO Q6H PRN PRN Reason: Pain, Moderate (4-6) Potassium Chloride (K-Dur) 20 meq PO QDAY [facility] Sertraline HCl (Zoloft) 100 mg PO QDAY [facility] Sodium Chloride (Sodium Chloride Flush Syringe 10 Ml) 10 ml IV BID [facility] Sodium Chloride (Sodium Chloride Flush Syringe 10 Ml) 10 ml IV PRN PRN PRN Reason: LINE FLUSH Spironolactone (Aldactone) 50 mg PO QDAY [facility] Review of Systems Constitutional: no fever, no chills, no sweats Ears, nose, mouth and throat: no ear pain, no nose pain, no sinus pressure, no sinus pain Cardiovascular: orthopnea, edema, shortness of breath, dyspnea on exertion, paroxysmal nocturnal dyspnea, no chest pain, no palpitations, no rapid/irregular heart beat, no syncope, no lightheadedness, no leg edema Respiratory: shortness of breath, dyspnea on exertion, no cough, no congestion, no wheezing, no pain on inspiration Gastrointestinal: other (abdominal swelling), no abdominal pain, no nausea, no vomiting, no diarrhea, no constipation, no change in bowel habits Genitourinary Male: no dysuria, no hematuria, no flank pain, no discharge, no urinary frequency, no urinary hesitancy Musculoskeletal: no neck stiffness, no neck pain, no shooting arm pain, no arm numbness/tingling, no low back pain, no shooting leg pain Integumentary: no rash, no pruritis, no redness, no sores, no wounds Neurological: no head injury, no paralysis, no weakness, no parathesias, no numbness, no tingling, no seizures, no syncope Psychiatric: no anxiety Endocrine: no cold intolerance, no heat intolerance Hematologic/Lymphatic: no easy bruising, no easy bleeding Allergic/Immunologic: no urticaria, no wheezing Physical Examination Vital Signs Temp Pulse Resp BP Pulse Ox 98.0 F 72 22 144/47 89 09/14/18 19:32 09/14/18 19:32 09/14/18 19:32 09/14/18 19:32 09/14/18 19:32 General appearance: no acute distress HEENT: Positive: PERRL, Normocephaly, Mucus Membranes Moist Neck: Positive: neck supple, trachea midline Cardiac: Positive: Reg Rate and Rhythm, S1/S2 Lungs: Positive: Decreased Breath Sounds Neuro: Positive: Grossly Intact Abdomen: Negative: Tender Skin: Negative: Wound Musculoskeletal: No Pain Extremities: Present: edema (trace BLE) Results 09/15/18 06:47 09/15/18 06:47 Cardiac Enzymes 09/15/18 09/15/18 Range/Units 00:47 06:47 CK-MB (CK-2) 2.1 2.7 (0.0-4.0) ng/mL Coagulation 09/14/18 Range/Units 20:38 PT 16.2 H (12.2-14.9) Sec. INR 1.22 H (0.87-1.13) APTT 33.0 (24.2-36.6) Sec. Lipids 09/14/18 Range/Units 20:38 Triglycerides 95 (2-149) mg/dL Cholesterol 100 (50-199) mg/dL HDL Cholesterol 34 L (40-59) mg/dL Cholesterol/HDL Ratio 2.94 % CBC 09/14/18 09/15/18 Range/Units 20:38 06:47 WBC 7.2 7.5 (4.5-11.0) K/mm3 RBC 4.92 5.32 H (3.65-5.03) M/mm3 Hgb 13.3 14.4 (11.8-15.2) gm/dl Hct 41.7 45.2 (35.5-45.6) % Plt Count 188 211 (140-440) K/mm3 Lymph # 1.2 (1.2-5.4) K/mm3 Lee # 0.7 (0.0-0.8) K/mm3 Eos # 0.1 (0.0-0.4) K/mm3 Baso # 0.0 (0.0-0.1) K/mm3 Comprehensive Metabolic Panel 09/14/18 09/15/18 Range/Units 20:38 06:47 Sodium 146 H 144 (137-145) mmol/L Potassium 3.5 L 3.8 (3.6-5.0) mmol/L Chloride 102.1 101.3 (98-107) mmol/L Carbon Dioxide 30 28 (22-30) mmol/L BUN 34 H 31 H (9-20) mg/dL Creatinine 2.1 H 1.9 H (0.8-1.5) mg/dL Glucose 149 H 252 H (75-100) mg/dL Calcium 9.5 9.0 (8.4-10.2) mg/dL - Imaging and Cardiology Echo: pending, report reviewed ( [place] 05/29/2017 showed EF 25%, AV sclerosis, mod dilated LA, mod LVH, small pericardial effusion, mod dilated RA, grade 3 diastolic dysfunction, mild TR, mild MVR, moderately enlarged RV cavity size, moderately reduced RV systolic function, pulmonary HTN with RVSP 56.7mmHg. ) EKG: report reviewed, image reviewed EKG interpretations - Telemetry EKG Rhythm: Sinus Rhythm - EKG Sinus rhythms and dysrhythmias: sinus rhythm Ventricular dysrhythmias: ventricular premature com Assessment and Plan Cont GDMT and IV diuresis as tolerated. No ACEI/ARB at this time in setting of renal insufficiency. Cont home Eliquis. F/u echo. AMI ruled out. Minimal troponin elevation currently nonspecific in setting of CMP, HF, CKD, HTN. The patient has been seen in conjunction with Dr. Kelvin Kang who agrees with the assessment and plan of care. - Patient Problems (1) Acute HFrEF (heart failure with reduced ejection fraction) Current Visit: Yes Status: Acute (2) NICM (nonischemic cardiomyopathy) Current Visit: Yes Status: Chronic (3) Elevated troponin Current Visit: Yes Status: Acute (4) Paroxysmal atrial flutter Current Visit: Yes Status: Chronic (5) COPD (chronic obstructive pulmonary disease) Current Visit: Yes Status: Chronic (6) Chronic respiratory failure Current Visit: Yes Status: Chronic (7) HTN (hypertension) Current Visit: Yes Status: Chronic (8) CKD (chronic kidney disease) Current Visit: Yes Status: Chronic (9) Sleep apnea Current Visit: Yes Status: Chronic (10) Obesity Current Visit: Yes Status: Chronic (11) History of cocaine use Current Visit: Yes Status: Chronic (12) History of ETOH abuse Current Visit: Yes Status: Chronic
[2018-09-15] MEDS: ZOLOFT PO SCH (13:45)
[2018-09-15] MEDS: APRESOLINE PO SCH ×2 (13:46→20:37)
[2018-09-15] MEDS: ISORDIL TITRADOSE PO SCH ×2 (13:46→20:38)
[2018-09-15] MEDS: ALDACTONE PO SCH (13:46)
[2018-09-15] MEDS: K-DUR PO SCH (13:46)
[2018-09-15] MEDS: NORVASC PO SCH (13:47)
[2018-09-15] MEDS: HABITROL TD SCH (13:56)
--- NOTE | 2018-09-15 14:03 | Progress Note ---
Assessment and Plan Assessment and plan: Patient is a 53 yo man with a history of hypertension, A. fib, CHF, CMP EF 25%, p. aflutter on Eliquis, COPD and chronic kidney disease, CMP with EF 25%, paroxysmal atrial flutter on Eliquis, chronic respiratory failure on 3 liters home O2 due to end stage COPD on home O2, newly diagnosed SADE (has not received CPAP at home yet), pulmonary HTN, tobacco use, prior ETOH use and cocaine use who presents to [facility] ED with sob. His Cardiology is Dr. Markell Garcia at [facility] and he made new medications changes recently: the lasix was changed to torsemide, the coreg was changed to metoprolol tartate. Of note, pt was discharged from [facility] in 06/[address]. He states that he temporarily moved to [place] after that hospitalization and was told by a pyridine recovery operator in [place] that his heart function improved on f/u echo and LifeVest was discontinued. He believes his last echo was in [place] in 10/2017. * Echo done at [place] 05/29/2017 showed EF 25%, AV sclerosis, mod dilated LA, mod LVH, small pericardial effusion, mod dilated RA, grade 3 diastolic dysfunction, mild TR, mild MVR, moderately enlarged RV cavity size, moderately reduced RV systolic function, pulmonary HTN with RVSP 56.7mmHg. * Pt underwent pharmacologic MPI stress test at [place] in 04/2017 which was negative for ischemia, EF 35%. * pCXR shows mild degree cardiomegaly with mild degree pulmonary venous congestion Acute on chronic systolic heart failure: treat with iv lasix, Cardiology follo wing Chronic hypoxic respiratory failure: continue O2 SADE: consult RT for SADE assessment Morbid obesity, bmi 41: drug abuse counselor on lifestyle modifications Elevated troponin due to increase demand: Cardiology consulted, input noted p. A. fib/a. flutter: continue Eliquis and coreg Hypertension: cardiac diet and antihypertensives Tobacco dependency: drug abuse counselor on stopping and ordered nicotine patch COPD: continue neb and o2 Chronic kidney disease 3, baseline Cr ~2.0: monitor bmp closely History Interval history: Patient was seen and examined. Follow-up on current diagnosis. No overnight events reported to me. Patient denies any chest pain, shortness breath, nausea/vomiting or severe headaches. Imaging, nursing note, chart, labs and old chart reviewed. Discussed with patient. Hospitalist Physical - Physical exam Narrative exam: Gen: WDWN, NAD, Awake, Alert, Orientated HEENT: NCAT, EOMI, PERRL, OP Clear Neck: supple, no adenopathy, no thyromegaly, no JVD CVS/Heart: RRR, normal S1S2, pulses present bilaterally Chest/Lungs: diminished bs bilateral, Symmetrical chest expansion, good air entry bilaterally GI/Abdomen: soft, NTND, good bowel sounds, no guarding or rebound /Bladder: no suprapubic tenderness, no CVA or paraspinal tenderness Extermity/Skin: trace pretibial ble edema, no obvious rash MSK: FROM x 4 Neuro: CN 2-12 grossly intact, no new focal deficits Psych: calm - Constitutional Vitals: Temp Pulse Resp BP Pulse Ox 98.2 F 80 24 154/86 91 09/15/18 13:40 09/15/18 13:47 09/15/18 13:40 09/15/18 13:47 09/15/18 13:40 General appearance: Present: no acute distress Results - Labs CBC & Chem 7: 09/15/18 06:47 09/15/18 06:47 Labs: Laboratory Last Values WBC 7.5 K/mm3 (4.5-11.0) 09/15/18 06:47 RBC 5.32 M/mm3 (3.65-5.03) H 09/15/18 06:47 Hgb 14.4 gm/dl (11.8-15.2) 09/15/18 06:47 Hct 45.2 % (35.5-45.6) 09/15/18 06:47 MCV 85 fl (84-94) 09/15/18 06:47 MCH 27 pg (28-32) L 09/15/18 06:47 MCHC 32 % (32-34) 09/15/18 06:47 RDW 18.1 % (13.2-15.2) H 09/15/18 06:47 Plt Count 211 K/mm3 (140-440) 09/15/18 06:47 Lymph % (Auto) 16.0 % (13.4-35.0) 09/14/18 20:38 Nobles % (Auto) 9.0 % (0.0-7.3) H 09/14/18 20:38 Eos % (Auto) 1.7 % (0.0-4.3) 09/14/18 20:38 Baso % (Auto) 0.3 % (0.0-1.8) 09/14/18 20:38 Lymph # 1.2 K/mm3 (1.2-5.4) 09/14/18 20:38 Nobles # 0.7 K/mm3 (0.0-0.8) 09/14/18 20:38 Eos # 0.1 K/mm3 (0.0-0.4) 09/14/18 20:38 Baso # 0.0 K/mm3 (0.0-0.1) 09/14/18 20:38 Add Manual Diff Complete 09/15/18 06:47 Total Counted 100 09/15/18 06:47 Seg Neutrophils % Rn Documentation Specialist 09/15/18 06:47 Seg Neuts % (Manual) 94.0 % (40.0-70.0) H 09/15/18 06:47 0 % 09/15/18 06:47 5.0 % (13.4-35.0) L 09/15/18 06:47 Reactive Lymphs % (Man) 0 % 09/15/18 06:47 1.0 % (0.0-7.3) 09/15/18 06:47 0 % (0.0-4.3) 09/15/18 06:47 0 % (0.0-1.8) 09/15/18 06:47 0 % 09/15/18 06:47 0 % 09/15/18 06:47 0 % 09/15/18 06:47 0 % 09/15/18 06:47 Nucleated RBC % Not Reportable 09/15/18 06:47 Seg Neutrophils # 5.3 K/mm3 (1.8-7.7) 09/14/18 20:38 Seg Neutrophils # Man 7.1 K/mm3 (1.8-7.7) 09/15/18 06:47 Band Neutrophils # 0.0 K/mm3 09/15/18 06:47 0.4 K/mm3 (1.2-5.4) L 09/15/18 06:47 Abs React Lymphs (Man) 0.0 K/mm3 09/15/18 06:47 0.1 K/mm3 (0.0-0.8) 09/15/18 06:47 0.0 K/mm3 (0.0-0.4) 09/15/18 06:47 0.0 K/mm3 (0.0-0.1) 09/15/18 06:47 0.0 K/mm3 09/15/18 06:47 0.0 K/mm3 09/15/18 06:47 0.0 K/mm3 09/15/18 06:47 Blast Cells # 0.0 K/mm3 09/15/18 06:47 WBC Morphology Not Reportable 09/15/18 06:47 Hypersegmented Neuts Not Reportable 09/15/18 06:47 Hyposegmented Neuts Not Reportable 09/15/18 06:47 Hypogranular Neuts Not Reportable 09/15/18 06:47 Not Reportable 09/15/18 06:47 Not Reportable 09/15/18 06:47 Not Reportable 09/15/18 06:47 Not Reportable 09/15/18 06:47 Not Reportable 09/15/18 06:47 Not Reportable 09/15/18 06:47 Consistent w auto 09/15/18 06:47 Not Reportable 09/15/18 06:47 Plt Clumps, EDTA Not Reportable 09/15/18 06:47 Not Reportable 09/15/18 06:47 Rare 09/15/18 06:47 Not Reportable 09/15/18 06:47 Plt Morphology Comment Not Reportable 09/15/18 06:47 RBC Morphology Not Reportable 09/15/18 06:47 Dimorphic RBCs Not Reportable 09/15/18 06:47 Not Reportable 09/15/18 06:47 Not Reportable 09/15/18 06:47 Not Reportable 09/15/18 06:47 Not Reportable 09/15/18 06:47 Not Reportable 09/15/18 06:47 Not Reportable 09/15/18 06:47 Not Reportable 09/15/18 06:47 Not Reportable 09/15/18 06:47 Not Reportable 09/15/18 06:47 Not Reportable 09/15/18 06:47 Not Reportable 09/15/18 06:47 Not Reportable 09/15/18 06:47 Not Reportable 09/15/18 06:47 Not Reportable 09/15/18 06:47 Not Reportable 09/15/18 06:47 Not Reportable 09/15/18 06:47 Not Reportable 09/15/18 06:47 Not Reportable 09/15/18 06:47 Not Reportable 09/15/18 06:47 Acanthocytes (Spur) Not Reportable 09/15/18 06:47 Rouleaux Not Reportable 09/15/18 06:47 Not Reportable 09/15/18 06:47 Not Reportable 09/15/18 06:47 Not Reportable 09/15/18 06:47 Not Reportable 09/15/18 06:47 Hem Pathologist Commnt No 09/15/18 06:47 PT 16.2 Sec. (12.2-14.9) H 09/14/18 20:38 INR 1.22 (0.87-1.13) H 09/14/18 20:38 APTT 33.0 Sec. (24.2-36.6) 09/14/18 20:38 Sodium 144 mmol/L (137-145) 09/15/18 06:47 Potassium 3.8 mmol/L (3.6-5.0) 09/15/18 06:47 Chloride 101.3 mmol/L (98-107) 09/15/18 06:47 Carbon Dioxide 28 mmol/L (22-30) 09/15/18 06:47 19 mmol/L 09/15/18 06:47 BUN 31 mg/dL (9-20) H 09/15/18 06:47 1.9 mg/dL (0.8-1.5) H 09/15/18 06:47 Estimated GFR 45 ml/min 09/15/18 06:47 16 % 09/15/18 06:47 Glucose 252 mg/dL (75-100) H 09/15/18 06:47 Calcium 9.0 mg/dL (8.4-10.2) 09/15/18 06:47 122 units/L (55-170) 09/15/18 06:47 CK-MB (CK-2) 2.7 ng/mL (0.0-4.0) 09/15/18 06:47 CK-MB (CK-2) Rel Index 2.2 (0-4) 09/15/18 06:47 < 0.010 ng/mL (0.00-0.029) 09/15/18 06:47 NT-Pro-B Natriuret Pep 896.1 pg/mL (0-900) 09/14/18 20:38 Triglycerides 95 mg/dL (2-149) 09/14/18 20:38 Cholesterol 100 mg/dL (50-199) 09/14/18 20:38 59 mg/dL (50-130) 09/14/18 20:38 34 mg/dL (40-59) L 09/14/18 20:38 2.94 % 09/14/18 20:38 Active Medications - Current Medications Current Medications: Generic Name Dose Route Start Last Admin Trade Name Freq PRN Reason Stop Dose Admin Acetaminophen 650 mg 09/14/18 23:59 Tylenol PO Q4H PRN Pain MILD(1-3)/Fever >100.5/SHRESTHA Amlodipine Besylate 5 mg 09/15/18 14:00 09/15/18 13:47 Norvasc PO 5 mg QDAY RONDA Administration Apixaban 5 mg 09/15/18 22:00 Eliquis PO BID [facility] Protocol Arformoterol Tartrate 15 mcg 09/15/18 20:00 Brovana Nebu IH Q12HRT [facility] Atorvastatin Calcium 40 mg 09/15/18 22:00 Lipitor PO QHS [facility] Benzonatate 100 mg 09/15/18 10:00 09/15/18 13:46 Tessalon Perles PO 100 mg Q8H PRN Administration Cough Budesonide 1 mg 09/15/18 20:00 Pulmicort IH Q12HRT [facility] Famotidine 20 mg 09/16/18 10:00 Pepcid PO DAILY [facility] Fluticasone Propionate 50 mcg 09/15/18 11:00 Flonase NS PRN RONDA Furosemide 40 mg 09/15/18 06:00 09/15/18 05:58 Lasix IV 40 mg BID@0600,1800 RONDA Administration Hydralazine HCl 100 mg 09/15/18 14:00 09/15/18 13:46 Apresoline PO 100 mg TID RONDA Administration Isosorbide Dinitrate 20 mg 09/15/18 14:00 09/15/18 13:46 Isordil Titradose PO 20 mg TID RONDA Administration Metoprolol Tartrate 25 mg 09/15/18 22:00 Lopressor PO BID RONDA Nicotine 14 mg 09/15/18 14:00 09/15/18 13:56 Habitrol TD 14 mg DAILY RONDA Administration Ondansetron HCl 4 mg 09/14/18 23:59 Zofran IV Q8H PRN Nausea And Vomiting Oxycodone/Acetaminophen 1 tab 09/14/18 23:59 Percocet 5/325 PO Q6H PRN Pain, Moderate (4-6) Potassium Chloride 20 meq 09/15/18 14:00 09/15/18 13:46 K-Dur PO 20 meq QDAY RONDA Administration Sertraline HCl 100 mg 09/15/18 14:00 09/15/18 13:45 Zoloft PO 100 mg QDAY RONDA Administration Sodium Chloride 10 ml 09/15/18 10:00 09/15/18 10:00 Sodium Chloride Flush Syringe 10 Ml IV 10 ml BID RONDA Administration Sodium Chloride 10 ml 09/14/18 23:59 Sodium Chloride Flush Syringe 10 Ml IV PRN PRN LINE FLUSH Spironolactone 50 mg 09/15/18 12:00 09/15/18 13:46 Aldactone PO 50 mg QDAY RONDA Administration
[2018-09-15] MEDS: BROVANA NEBU IH SCH (19:55)
[2018-09-15] MEDS: PULMICORT IH SCH (19:55)
[2018-09-15] MEDS ORDERED: ELIQUIS PO SCH (22:00)
[2018-09-15] MEDS: LOPRESSOR PO SCH (22:32)
[2018-09-15] MEDS: ELIQUIS PO SCH (22:33)
[2018-09-16] MEDS: LASIX IV SCH ×2 (05:38→17:46)
[2018-09-16 06:05] LABS: Calcium 8.7 mg/dL (8.4-10.2)
[2018-09-16] MEDS: BROVANA NEBU IH SCH ×2 (08:03→21:32)
[2018-09-16] MEDS: PULMICORT IH SCH ×2 (08:03→21:32)
[2018-09-16] MEDS: ALDACTONE PO SCH (09:19)
[2018-09-16] MEDS: APRESOLINE PO SCH ×3 (09:20→21:06)
[2018-09-16] MEDS: NORVASC PO SCH (09:20)
[2018-09-16] MEDS: PEPCID PO SCH (09:20)
[2018-09-16] MEDS: ISORDIL TITRADOSE PO SCH ×3 (09:20→21:06)
[2018-09-16] MEDS: ELIQUIS PO SCH ×2 (09:21→21:06)
[2018-09-16] MEDS: HABITROL TD SCH (09:21)
[2018-09-16] MEDS: ZOLOFT PO SCH (09:21)
[2018-09-16] MEDS: K-DUR PO SCH (09:21)
[2018-09-16] MEDS: LOPRESSOR PO SCH ×2 (09:21→21:06)
[2018-09-16] MEDS: SODIUM CHLORIDE FLUSH SYRINGE 10 ML IV SCH ×2 (09:22→21:06)
--- NOTE | 2018-09-16 11:06 | Progress Note ---
Assessment and Plan Cont GDMT and IV diuresis as tolerated. Serum Cr appears to be around baseline compared to prior hospitalizations. No ACEI/ARB at this time in setting of renal insufficiency. Cont home Eliquis. AMI ruled out. Minimal troponin elevation currently nonspecific in setting of CMP, HF, CKD, HTN. The patient has been seen in conjunction with Dr. Kelvin Kang who agrees with the assessment and plan of care. - Patient Problems (1) Acute HFrEF (heart failure with reduced ejection fraction) Current Visit: Yes Status: Acute (2) NICM (nonischemic cardiomyopathy) Current Visit: Yes Status: Chronic (3) Elevated troponin Current Visit: Yes Status: Acute (4) Paroxysmal atrial flutter Current Visit: Yes Status: Chronic (5) COPD (chronic obstructive pulmonary disease) Current Visit: Yes Status: Chronic (6) Chronic respiratory failure Current Visit: Yes Status: Chronic (7) HTN (hypertension) Current Visit: Yes Status: Chronic (8) CKD (chronic kidney disease) Current Visit: Yes Status: Chronic (9) Sleep apnea Current Visit: Yes Status: Chronic (10) Obesity Current Visit: Yes Status: Chronic (11) History of cocaine use Current Visit: Yes Status: Chronic (12) History of ETOH abuse Current Visit: Yes Status: Chronic Subjective Date of service: 09/16/18 Principal diagnosis: HF Interval history: pt sitting up at bedside, still with LUCAS and orthopnea. he tried to wear CPAP overnight but was not able to wear all night d/t claustrophobia. Objective Last Vital Signs Temp 98.2 F 09/16/18 08:08 Pulse 62 09/16/18 09:21 Resp 20 09/16/18 08:08 BP 160/100 09/16/18 09:21 Pulse Ox 91 09/16/18 08:08 - Physical Examination General: No Apparent Distress HEENT: Positive: PERRL, Normocephaly, Mucus Membranes Moist Neck: Positive: neck supple, trachea midline Cardiac: Positive: Reg Rate and Rhythm, S1/S2 Lungs: Positive: Decreased Breath Sounds Neuro: Positive: Grossly Intact Abdomen: Negative: Tender Skin: Negative: Wound Musculoskeletal: No Pain Extremities: Present: edema (trace BLE) - Labs and Meds Comprehensive Metabolic Panel 09/16/18 Range/Units 05:12 Sodium 144 (137-145) mmol/L Potassium 3.9 (3.6-5.0) mmol/L Chloride 102.1 (98-107) mmol/L Carbon Dioxide 29 (22-30) mmol/L BUN 38 H (9-20) mg/dL Creatinine 2.1 H (0.8-1.5) mg/dL Glucose 129 H (75-100) mg/dL Calcium 8.7 (8.4-10.2) mg/dL - Imaging and Cardiology EKG: report reviewed, image reviewed Echo: pending, report reviewed ( [place] 05/29/2017 showed EF 25%, AV sclerosis, mod dilated LA, mod LVH, small pericardial effusion, mod dilated RA, grade 3 diastolic dysfunction, mild TR, mild MVR, moderately enlarged RV cavity size, moderately reduced RV systolic function, pulmonary HTN with RVSP 56.7mmHg. ) - EKG Sinus rhythms and dysrhythmias: sinus rhythm Ventricular dysrhythmias: ventricular premature com
--- NOTE | 2018-09-16 13:33 | Progress Note ---
Assessment and Plan Assessment and plan: Patient is a 53 yo man with a history of hypertension, A. fib, CHF, CMP EF 25%, p. aflutter on Eliquis, COPD and chronic kidney disease, CMP with EF 25%, paroxysmal atrial flutter on Eliquis, chronic respiratory failure on 3 liters home O2 due to end stage COPD on home O2, newly diagnosed SADE (has not received CPAP at home yet), pulmonary HTN, tobacco use, prior ETOH use and cocaine use who presents to [facility] ED with sob. His Cardiology is Dr. Markell Garcia at [facility] and he made new medications changes recently: the lasix was changed to torsemide, the coreg was changed to metoprolol tartate. Of note, pt was discharged from [facility] in 06/[address]. He states that he temporarily moved to [place] after that hospitalization and was told by a career guidance technician in [place] that his heart function improved on f/u echo and LifeVest was discontinued. He believes his last echo was in [place] in 10/2017. * Echo done at [place] 05/29/2017 showed EF 25%, AV sclerosis, mod dilated LA, mod LVH, small pericardial effusion, mod dilated RA, grade 3 diastolic dysfunction, mild TR, mild MVR, moderately enlarged RV cavity size, moderately reduced RV systolic function, pulmonary HTN with RVSP 56.7mmHg. * Pt underwent pharmacologic MPI stress test at [place] in 04/2017 which was negative for ischemia, EF 35%. * pCXR shows mild degree cardiomegaly with mild degree pulmonary venous congestion Acute on chronic systolic heart failure: treat with iv lasix, Cardiology follo wing Chronic hypoxic respiratory failure: continue O2 SADE: consult RT for SADE assessment Morbid obesity, bmi 41: activities counselor on lifestyle modifications Elevated troponin due to increase demand: Cardiology consulted, input noted p. A. fib/a. flutter: continue Eliquis and coreg Hypertension: cardiac diet and antihypertensives Tobacco dependency: activities counselor on stopping and ordered nicotine patch COPD: continue neb and o2 Chronic kidney disease 3, baseline Cr ~2.0: monitor bmp closely History Interval history: Patient was seen and examined. Follow-up on current diagnosis of CHF. No overnight events reported to me. Patient denies any chest pain, shortness breath, nausea/vomiting or severe headaches. Imaging, nursing note, chart, labs and old chart reviewed. Discussed with patient. He had trouble sleeping. Hospitalist Physical - Physical exam Narrative exam: Gen: WDWN, NAD, Awake, Alert, Orientated HEENT: NCAT, EOMI, PERRL, OP Clear Neck: supple, no adenopathy, no thyromegaly, no JVD CVS/Heart: RRR, normal S1S2, pulses present bilaterally Chest/Lungs: diminished bs bilateral, Symmetrical chest expansion, good air entry bilaterally GI/Abdomen: soft, NTND, good bowel sounds, no guarding or rebound /Bladder: no suprapubic tenderness, no CVA or paraspinal tenderness Extermity/Skin: trace pretibial ble edema, no obvious rash MSK: FROM x 4 Neuro: CN 2-12 grossly intact, no new focal deficits Psych: calm - Constitutional Vitals: Temp Pulse Resp BP Pulse Ox 98.6 F 57 L 22 122/72 100 09/16/18 12:06 09/16/18 12:06 09/16/18 13:00 09/16/18 12:06 09/16/18 12:06 General appearance: Present: no acute distress Results - Labs CBC & Chem 7: 09/15/18 06:47 09/16/18 05:12 Labs: Laboratory Last Values WBC 7.5 K/mm3 (4.5-11.0) 09/15/18 06:47 RBC 5.32 M/mm3 (3.65-5.03) H 09/15/18 06:47 Hgb 14.4 gm/dl (11.8-15.2) 09/15/18 06:47 Hct 45.2 % (35.5-45.6) 09/15/18 06:47 MCV 85 fl (84-94) 09/15/18 06:47 MCH 27 pg (28-32) L 09/15/18 06:47 MCHC 32 % (32-34) 09/15/18 06:47 RDW 18.1 % (13.2-15.2) H 09/15/18 06:47 Plt Count 211 K/mm3 (140-440) 09/15/18 06:47 Lymph % (Auto) 16.0 % (13.4-35.0) 09/14/18 20:38 [place] % (Auto) 9.0 % (0.0-7.3) H 09/14/18 20:38 Eos % (Auto) 1.7 % (0.0-4.3) 09/14/18 20:38 Baso % (Auto) 0.3 % (0.0-1.8) 09/14/18 20:38 Lymph # 1.2 K/mm3 (1.2-5.4) 09/14/18 20:38 [place] # 0.7 K/mm3 (0.0-0.8) 09/14/18 20:38 Eos # 0.1 K/mm3 (0.0-0.4) 09/14/18 20:38 Baso # 0.0 K/mm3 (0.0-0.1) 09/14/18 20:38 Add Manual Diff Complete 09/15/18 06:47 Total Counted 100 09/15/18 06:47 Seg Neutrophils % Shop Assistant 09/15/18 06:47 Seg Neuts % (Manual) 94.0 % (40.0-70.0) H 09/15/18 06:47 0 % 09/15/18 06:47 5.0 % (13.4-35.0) L 09/15/18 06:47 Reactive Lymphs % (Man) 0 % 09/15/18 06:47 1.0 % (0.0-7.3) 09/15/18 06:47 0 % (0.0-4.3) 09/15/18 06:47 0 % (0.0-1.8) 09/15/18 06:47 0 % 09/15/18 06:47 0 % 09/15/18 06:47 0 % 09/15/18 06:47 0 % 09/15/18 06:47 Nucleated RBC % Not Reportable 09/15/18 06:47 Seg Neutrophils # 5.3 K/mm3 (1.8-7.7) 09/14/18 20:38 Seg Neutrophils # Man 7.1 K/mm3 (1.8-7.7) 09/15/18 06:47 Band Neutrophils # 0.0 K/mm3 09/15/18 06:47 0.4 K/mm3 (1.2-5.4) L 09/15/18 06:47 Abs React Lymphs (Man) 0.0 K/mm3 09/15/18 06:47 0.1 K/mm3 (0.0-0.8) 09/15/18 06:47 0.0 K/mm3 (0.0-0.4) 09/15/18 06:47 0.0 K/mm3 (0.0-0.1) 09/15/18 06:47 0.0 K/mm3 09/15/18 06:47 0.0 K/mm3 09/15/18 06:47 0.0 K/mm3 09/15/18 06:47 Blast Cells # 0.0 K/mm3 09/15/18 06:47 WBC Morphology Not Reportable 09/15/18 06:47 Hypersegmented Neuts Not Reportable 09/15/18 06:47 Hyposegmented Neuts Not Reportable 09/15/18 06:47 Hypogranular Neuts Not Reportable 09/15/18 06:47 Not Reportable 09/15/18 06:47 Not Reportable 09/15/18 06:47 Not Reportable 09/15/18 06:47 Not Reportable 09/15/18 06:47 Not Reportable 09/15/18 06:47 Not Reportable 09/15/18 06:47 Consistent w auto 09/15/18 06:47 Not Reportable 09/15/18 06:47 Plt Clumps, EDTA Not Reportable 09/15/18 06:47 Not Reportable 09/15/18 06:47 Rare 09/15/18 06:47 Not Reportable 09/15/18 06:47 Plt Morphology Comment Not Reportable 09/15/18 06:47 RBC Morphology Not Reportable 09/15/18 06:47 Dimorphic RBCs Not Reportable 09/15/18 06:47 Not Reportable 09/15/18 06:47 Not Reportable 09/15/18 06:47 Not Reportable 09/15/18 06:47 Not Reportable 09/15/18 06:47 Not Reportable 09/15/18 06:47 Not Reportable 09/15/18 06:47 Not Reportable 09/15/18 06:47 Not Reportable 09/15/18 06:47 Not Reportable 09/15/18 06:47 Not Reportable 09/15/18 06:47 Not Reportable 09/15/18 06:47 Not Reportable 09/15/18 06:47 Not Reportable 09/15/18 06:47 Not Reportable 09/15/18 06:47 Not Reportable 09/15/18 06:47 Not Reportable 09/15/18 06:47 Not Reportable 09/15/18 06:47 Not Reportable 09/15/18 06:47 Not Reportable 09/15/18 06:47 Acanthocytes (Spur) Not Reportable 09/15/18 06:47 Rouleaux Not Reportable 09/15/18 06:47 Not Reportable 09/15/18 06:47 Not Reportable 09/15/18 06:47 Not Reportable 09/15/18 06:47 Not Reportable 09/15/18 06:47 Hem Pathologist Commnt No 09/15/18 06:47 PT 16.2 Sec. (12.2-14.9) H 09/14/18 20:38 INR 1.22 (0.87-1.13) H 09/14/18 20:38 APTT 33.0 Sec. (24.2-36.6) 09/14/18 20:38 Sodium 144 mmol/L (137-145) 09/16/18 05:12 Potassium 3.9 mmol/L (3.6-5.0) 09/16/18 05:12 Chloride 102.1 mmol/L (98-107) 09/16/18 05:12 Carbon Dioxide 29 mmol/L (22-30) 09/16/18 05:12 17 mmol/L 09/16/18 05:12 BUN 38 mg/dL (9-20) H 09/16/18 05:12 2.1 mg/dL (0.8-1.5) H 09/16/18 05:12 Estimated GFR 40 ml/min 09/16/18 05:12 18 % 09/16/18 05:12 Glucose 129 mg/dL (75-100) H 09/16/18 05:12 Calcium 8.7 mg/dL (8.4-10.2) 09/16/18 05:12 122 units/L (55-170) 09/15/18 06:47 CK-MB (CK-2) 2.7 ng/mL (0.0-4.0) 09/15/18 06:47 CK-MB (CK-2) Rel Index 2.2 (0-4) 09/15/18 06:47 < 0.010 ng/mL (0.00-0.029) 09/15/18 06:47 NT-Pro-B Natriuret Pep 896.1 pg/mL (0-900) 09/14/18 20:38 Triglycerides 95 mg/dL (2-149) 09/14/18 20:38 Cholesterol 100 mg/dL (50-199) 09/14/18 20:38 59 mg/dL (50-130) 09/14/18 20:38 34 mg/dL (40-59) L 09/14/18 20:38 2.94 % 09/14/18 20:38 Active Medications - Current Medications Current Medications: Generic Name Dose Route Start Last Admin Trade Name Freq PRN Reason Stop Dose Admin Acetaminophen 650 mg 09/14/18 23:59 Tylenol PO Q4H PRN Pain MILD(1-3)/Fever >100.5/SHRESTHA Amlodipine Besylate 5 mg 09/15/18 14:00 09/16/18 09:20 Norvasc PO 5 mg QDAY RONDA Administration Apixaban 5 mg 09/15/18 22:00 09/16/18 09:21 Eliquis PO 5 mg BID RONDA Administration Protocol Arformoterol Tartrate 15 mcg 09/15/18 20:00 09/16/18 08:03 Brovana Nebu IH 15 mcg Q12HRT RONDA Administration Atorvastatin Calcium 40 mg 09/15/18 22:00 09/15/18 22:32 Lipitor PO 40 mg QHS RONDA Administration Benzonatate 100 mg 09/15/18 10:00 09/15/18 13:46 Tessalon Perles PO 100 mg Q8H PRN Administration Cough Budesonide 1 mg 09/15/18 20:00 09/16/18 08:03 Pulmicort IH 1 mg Q12HRT RONDA Administration Famotidine 20 mg 09/16/18 10:00 09/16/18 09:20 Pepcid PO 20 mg DAILY RONDA Administration Fluticasone Propionate 50 mcg 09/15/18 11:00 Flonase NS PRN RONDA Furosemide 40 mg 09/15/18 06:00 09/16/18 05:38 Lasix IV 40 mg BID@0600,1800 RONDA Administration Hydralazine HCl 100 mg 09/15/18 14:00 09/16/18 09:20 Apresoline PO 100 mg TID RONDA Administration Isosorbide Dinitrate 20 mg 09/15/18 14:00 09/16/18 09:20 Isordil Titradose PO 20 mg TID RONDA Administration Metoprolol Tartrate 25 mg 09/15/18 22:00 09/16/18 09:21 Lopressor PO 25 mg BID RONDA Administration Nicotine 14 mg 09/15/18 14:00 09/16/18 09:21 Habitrol TD 14 mg DAILY RONDA Administration Ondansetron HCl 4 mg 09/14/18 23:59 Zofran IV Q8H PRN Nausea And Vomiting Oxycodone/Acetaminophen 1 tab 09/14/18 23:59 Percocet 5/325 PO Q6H PRN Pain, Moderate (4-6) Potassium Chloride 20 meq 09/15/18 14:00 09/16/18 09:21 K-Dur PO 20 meq QDAY RONDA Administration Sertraline HCl 100 mg 09/15/18 14:00 09/16/18 09:21 Zoloft PO 100 mg QDAY RONDA Administration Sodium Chloride 10 ml 09/15/18 10:00 09/16/18 09:22 Sodium Chloride Flush Syringe 10 Ml IV 10 ml BID RONDA Administration Sodium Chloride 10 ml 09/14/18 23:59 Sodium Chloride Flush Syringe 10 Ml IV PRN PRN LINE FLUSH Spironolactone 50 mg 09/15/18 12:00 09/16/18 09:19 Aldactone PO 50 mg QDAY RONDA Administration
[2018-09-16] MEDS: RESTORIL PO PRN (22:22)
[2018-09-17] MEDS: LASIX IV SCH (06:00)
[2018-09-17] MEDS: PULMICORT IH SCH ×2 (07:27→20:18)
[2018-09-17] MEDS: BROVANA NEBU IH SCH ×2 (07:28→20:18)
[2018-09-17] MEDS: APRESOLINE PO SCH ×3 (09:47→21:50)
[2018-09-17] MEDS: LOPRESSOR PO SCH ×2 (09:47→21:50)
[2018-09-17] MEDS: NORVASC PO SCH (09:47)
[2018-09-17] MEDS: ELIQUIS PO SCH ×2 (09:47→21:51)
[2018-09-17] MEDS: ISORDIL TITRADOSE PO SCH ×3 (09:48→21:50)
[2018-09-17] MEDS: PEPCID PO SCH (09:48)
[2018-09-17] MEDS: ALDACTONE PO SCH (09:48)
[2018-09-17] MEDS: ZOLOFT PO SCH (09:48)
[2018-09-17] MEDS: K-DUR PO SCH (09:48)
[2018-09-17] MEDS: SODIUM CHLORIDE FLUSH SYRINGE 10 ML IV SCH ×2 (09:48→22:56)
[2018-09-17] MEDS: HABITROL TD SCH (09:48)
--- NOTE | 2018-09-17 11:40 | Progress Note ---
Assessment and Plan Cont GDMT. Serum Cr appears to be around baseline compared to prior hospitalizations. No ACEI/ARB at this time in setting of renal insufficiency. Cont home Eliquis. 15 beats NSVT noted - will add amio, already on bb w/ HR in 50s/60s (nl fxn wnl), k is nl, check mg consider nephrology consult for CKD near euvolemia - change lasix to po - Patient Problems (1) Acute HFrEF (heart failure with reduced ejection fraction) Current Visit: Yes Status: Acute (2) CHF exacerbation Current Visit: Yes Status: Acute (3) CKD (chronic kidney disease) Current Visit: Yes Status: Chronic (4) COPD (chronic obstructive pulmonary disease) Current Visit: Yes Status: Chronic (5) Chronic respiratory failure Current Visit: Yes Status: Chronic (6) History of ETOH abuse Current Visit: Yes Status: Chronic (7) History of cocaine use Current Visit: Yes Status: Chronic (8) Paroxysmal atrial flutter Current Visit: Yes Status: Chronic (9) Sleep apnea Current Visit: Yes Status: Chronic Subjective Date of service: 09/17/18 Principal diagnosis: HF Interval history: feels better Objective Vital Signs Temp Pulse Pulse Pulse Resp Resp Resp 09/17/18 07:58 59 L 20 09/17/18 07:50 97.7 F 56 L 20 09/17/18 07:16 59 L 09/17/18 05:02 98.4 F 59 L 18 09/17/18 04:00 62 09/16/18 23:47 98.0 F 63 18 09/16/18 22:16 09/16/18 21:52 68 19 09/16/18 21:37 09/16/18 21:33 67 17 09/16/18 19:15 98.1 F 65 18 09/16/18 16:42 98.0 F 62 20 09/16/18 14:08 60 09/16/18 13:00 22 09/16/18 12:06 98.6 F 57 L 18 BP Pulse Ox 09/17/18 07:58 95 09/17/18 07:50 159/91 98 09/17/18 07:16 09/17/18 05:02 158/76 95 09/17/18 04:00 09/16/18 23:47 146/93 95 09/16/18 22:16 99 09/16/18 21:52 09/16/18 21:37 99 09/16/18 21:33 09/16/18 19:15 135/78 98 09/16/18 16:42 134/65 91 09/16/18 14:08 120/68 09/16/18 13:00 09/16/18 12:06 122/72 100 - Physical Examination General: No Apparent Distress HEENT: Positive: PERRL, Normocephaly, Mucus Membranes Moist Neck: Positive: neck supple, trachea midline Neuro: Positive: Grossly Intact Abdomen: Negative: Tender Skin: Negative: Wound Musculoskeletal: No Pain Extremities: Present: edema (trace BLE) - Imaging and Cardiology EKG: report reviewed, image reviewed Echo: pending, report reviewed ( [place] 05/29/2017 showed EF 25%, AV sclerosis, mod dilated LA, mod LVH, small pericardial effusion, mod dilated RA, grade 3 diastolic dysfunction, mild TR, mild MVR, moderately enlarged RV cavity size, moderately reduced RV systolic function, pulmonary HTN with RVSP 56.7mmHg. ) - EKG Sinus rhythms and dysrhythmias: sinus rhythm Ventricular dysrhythmias: ventricular premature com
--- NOTE | 2018-09-17 11:55 | Progress Note ---
Assessment and Plan Assessment and plan: Patient is a 53 yo man with a history of hypertension, A. fib, CHF, CMP EF 25%, p. aflutter on Eliquis, COPD and chronic kidney disease, CMP with EF 25%, paroxysmal atrial flutter on Eliquis, chronic respiratory failure on 3 liters home O2 due to end stage COPD on home O2, newly diagnosed SADE (has not received CPAP at home yet), pulmonary HTN, tobacco use, prior ETOH use and cocaine use who presents to [facility] ED with sob. His Cardiology is Dr. Markell Garcia at [facility] and he made new medications changes recently: the lasix was changed to torsemide, the Coreg was changed to metoprolol tartate. Of note, pt was discharged from [facility] in 06/[address]. He states that he temporarily moved to [place] after that hospitalization and was told by a steamfitter supervisor in [place] that his heart function improved on f/u echo and LifeVest was discontinued. He believes his last echo was in [place] in 10/2017. * Echo done at [place] 05/29/2017 showed EF 25%, AV sclerosis, mod dilated LA, mod LVH, small pericardial effusion, mod dilated RA, grade 3 diastolic dysfunction, mild TR, mild MVR, moderately enlarged RV cavity size, moderately reduced RV systolic function, pulmonary HTN with RVSP 56.7mmHg. * Pt underwent pharmacologic MPI stress test at [place] in 04/2017 which was negative for ischemia, EF 35%. * pCXR shows mild degree Cardiomegaly with mild degree pulmonary venous congestion Acute on chronic systolic heart failure, EF 25%: treat with iv lasix, Cardiology following Chronic hypoxic respiratory failure: continue O2 SADE: consult RT for SADE assessment Morbid obesity, bmi 41: correctional classification counselor on lifestyle modifications Elevated troponin due to increase demand: Cardiology consulted, input noted p. A. fib/a. flutter: continue Eliquis and coreg Hypertension: cardiac diet and antihypertensives Tobacco dependency: correctional classification counselor on stopping and ordered nicotine patch COPD: continue neb and o2 Chronic kidney disease 3, baseline Cr ~2.0: monitor bmp closely, consulted Nephrology New issue NSVT, 15 beat run on 09/17/18: Start Amiodarone, Cardiology notified History Interval history: Patient was seen and examined. Follow-up on current diagnosis of CHF. No overnight events reported to me. Patient denies any chest pain, nausea/vomiting or severe headaches. Imaging, nursing note, chart, labs and old chart reviewed. Discussed with patient. Still with [facility] Hospitalist Physical - Physical exam Narrative exam: Gen: WDWN, NAD, Awake, Alert, Orientated HEENT: NCAT, EOMI, PERRL, OP Clear Neck: supple, no adenopathy, no thyromegaly, no JVD CVS/Heart: RRR, normal S1S2, pulses present bilaterally Chest/Lungs: diminished bs bilateral, Symmetrical chest expansion, good air entry bilaterally GI/Abdomen: soft, NTND, good bowel sounds, no guarding or rebound /Bladder: no suprapubic tenderness, no CVA or paraspinal tenderness Extermity/Skin: trace pretibial ble edema, no obvious rash MSK: FROM x 4 Neuro: CN 2-12 grossly intact, no new focal deficits Psych: calm - Constitutional Vitals: Temp Pulse Resp BP Pulse Ox 97.7 F 59 L 20 159/91 95 09/17/18 07:50 09/17/18 07:58 09/17/18 07:58 09/17/18 07:50 09/17/18 07:58 General appearance: Present: no acute distress Results - Labs CBC & Chem 7: 09/15/18 06:47 09/16/18 05:12 Labs: Laboratory Last Values WBC 7.5 K/mm3 (4.5-11.0) 09/15/18 06:47 RBC 5.32 M/mm3 (3.65-5.03) H 09/15/18 06:47 Hgb 14.4 gm/dl (11.8-15.2) 09/15/18 06:47 Hct 45.2 % (35.5-45.6) 09/15/18 06:47 MCV 85 fl (84-94) 09/15/18 06:47 MCH 27 pg (28-32) L 09/15/18 06:47 MCHC 32 % (32-34) 09/15/18 06:47 RDW 18.1 % (13.2-15.2) H 09/15/18 06:47 Plt Count 211 K/mm3 (140-440) 09/15/18 06:47 Lymph % (Auto) 16.0 % (13.4-35.0) 09/14/18 20:38 [place] % (Auto) 9.0 % (0.0-7.3) H 09/14/18 20:38 Eos % (Auto) 1.7 % (0.0-4.3) 09/14/18 20:38 Baso % (Auto) 0.3 % (0.0-1.8) 09/14/18 20:38 Lymph # 1.2 K/mm3 (1.2-5.4) 09/14/18 20:38 [place] # 0.7 K/mm3 (0.0-0.8) 09/14/18 20:38 Eos # 0.1 K/mm3 (0.0-0.4) 09/14/18 20:38 Baso # 0.0 K/mm3 (0.0-0.1) 09/14/18 20:38 Add Manual Diff Complete 09/15/18 06:47 Total Counted 100 09/15/18 06:47 Seg Neutrophils % Broadcast Director Operations 09/15/18 06:47 Seg Neuts % (Manual) 94.0 % (40.0-70.0) H 09/15/18 06:47 0 % 09/15/18 06:47 5.0 % (13.4-35.0) L 09/15/18 06:47 Reactive Lymphs % (Man) 0 % 09/15/18 06:47 1.0 % (0.0-7.3) 09/15/18 06:47 0 % (0.0-4.3) 09/15/18 06:47 0 % (0.0-1.8) 09/15/18 06:47 0 % 09/15/18 06:47 0 % 09/15/18 06:47 0 % 09/15/18 06:47 0 % 09/15/18 06:47 Nucleated RBC % Not Reportable 09/15/18 06:47 Seg Neutrophils # 5.3 K/mm3 (1.8-7.7) 09/14/18 20:38 Seg Neutrophils # Man 7.1 K/mm3 (1.8-7.7) 09/15/18 06:47 Band Neutrophils # 0.0 K/mm3 09/15/18 06:47 0.4 K/mm3 (1.2-5.4) L 09/15/18 06:47 Abs React Lymphs (Man) 0.0 K/mm3 09/15/18 06:47 0.1 K/mm3 (0.0-0.8) 09/15/18 06:47 0.0 K/mm3 (0.0-0.4) 09/15/18 06:47 0.0 K/mm3 (0.0-0.1) 09/15/18 06:47 0.0 K/mm3 09/15/18 06:47 0.0 K/mm3 09/15/18 06:47 0.0 K/mm3 09/15/18 06:47 Blast Cells # 0.0 K/mm3 09/15/18 06:47 WBC Morphology Not Reportable 09/15/18 06:47 Hypersegmented Neuts Not Reportable 09/15/18 06:47 Hyposegmented Neuts Not Reportable 09/15/18 06:47 Hypogranular Neuts Not Reportable 09/15/18 06:47 Not Reportable 09/15/18 06:47 Not Reportable 09/15/18 06:47 Not Reportable 09/15/18 06:47 Not Reportable 09/15/18 06:47 Not Reportable 09/15/18 06:47 Not Reportable 09/15/18 06:47 Consistent w auto 09/15/18 06:47 Not Reportable 09/15/18 06:47 Plt Clumps, EDTA Not Reportable 09/15/18 06:47 Not Reportable 09/15/18 06:47 Rare 09/15/18 06:47 Not Reportable 09/15/18 06:47 Plt Morphology Comment Not Reportable 09/15/18 06:47 RBC Morphology Not Reportable 09/15/18 06:47 Dimorphic RBCs Not Reportable 09/15/18 06:47 Not Reportable 09/15/18 06:47 Not Reportable 09/15/18 06:47 Not Reportable 09/15/18 06:47 Not Reportable 09/15/18 06:47 Not Reportable 09/15/18 06:47 Not Reportable 09/15/18 06:47 Not Reportable 09/15/18 06:47 Not Reportable 09/15/18 06:47 Not Reportable 09/15/18 06:47 Not Reportable 09/15/18 06:47 Not Reportable 09/15/18 06:47 Not Reportable 09/15/18 06:47 Not Reportable 09/15/18 06:47 Not Reportable 09/15/18 06:47 Not Reportable 09/15/18 06:47 Not Reportable 09/15/18 06:47 Not Reportable 09/15/18 06:47 Not Reportable 09/15/18 06:47 Not Reportable 09/15/18 06:47 Acanthocytes (Spur) Not Reportable 09/15/18 06:47 Rouleaux Not Reportable 09/15/18 06:47 Not Reportable 09/15/18 06:47 Not Reportable 09/15/18 06:47 Not Reportable 09/15/18 06:47 Not Reportable 09/15/18 06:47 Hem Pathologist Commnt No 09/15/18 06:47 PT 16.2 Sec. (12.2-14.9) H 09/14/18 20:38 INR 1.22 (0.87-1.13) H 09/14/18 20:38 APTT 33.0 Sec. (24.2-36.6) 09/14/18 20:38 Sodium 144 mmol/L (137-145) 09/16/18 05:12 Potassium 3.9 mmol/L (3.6-5.0) 09/16/18 05:12 Chloride 102.1 mmol/L (98-107) 09/16/18 05:12 Carbon Dioxide 29 mmol/L (22-30) 09/16/18 05:12 17 mmol/L 09/16/18 05:12 BUN 38 mg/dL (9-20) H 09/16/18 05:12 2.1 mg/dL (0.8-1.5) H 09/16/18 05:12 Estimated GFR 40 ml/min 09/16/18 05:12 18 % 09/16/18 05:12 Glucose 129 mg/dL (75-100) H 09/16/18 05:12 Calcium 8.7 mg/dL (8.4-10.2) 09/16/18 05:12 122 units/L (55-170) 09/15/18 06:47 CK-MB (CK-2) 2.7 ng/mL (0.0-4.0) 09/15/18 06:47 CK-MB (CK-2) Rel Index 2.2 (0-4) 09/15/18 06:47 < 0.010 ng/mL (0.00-0.029) 09/15/18 06:47 NT-Pro-B Natriuret Pep 896.1 pg/mL (0-900) 09/14/18 20:38 Triglycerides 95 mg/dL (2-149) 09/14/18 20:38 Cholesterol 100 mg/dL (50-199) 09/14/18 20:38 59 mg/dL (50-130) 09/14/18 20:38 34 mg/dL (40-59) L 09/14/18 20:38 2.94 % 09/14/18 20:38 Active Medications - Current Medications Current Medications: Generic Name Dose Route Start Last Admin Trade Name Freq PRN Reason Stop Dose Admin Acetaminophen 650 mg 09/14/18 23:59 Tylenol PO Q4H PRN Pain MILD(1-3)/Fever >100.5/SHRESTHA Amiodarone HCl 200 mg 09/17/18 12:00 Cordarone PO BID RONDA Amlodipine Besylate 5 mg 09/15/18 14:00 09/17/18 09:47 Norvasc PO 5 mg QDAY RONDA Administration Apixaban 5 mg 09/15/18 22:00 09/17/18 09:47 Eliquis PO 5 mg BID RONDA Administration Protocol Arformoterol Tartrate 15 mcg 09/15/18 20:00 09/17/18 07:28 Brovana Nebu IH 15 mcg Q12HRT RONDA Administration Atorvastatin Calcium 40 mg 09/15/18 22:00 09/16/18 21:06 Lipitor PO 40 mg QHS RONDA Administration Benzonatate 100 mg 09/15/18 10:00 09/15/18 13:46 Tessalon Perles PO 100 mg Q8H PRN Administration Cough Budesonide 1 mg 09/15/18 20:00 09/17/18 07:27 Pulmicort IH 1 mg Q12HRT RONDA Administration Famotidine 20 mg 09/16/18 10:00 09/17/18 09:48 Pepcid PO 20 mg DAILY RONDA Administration Fluticasone Propionate 50 mcg 09/15/18 11:00 Flonase NS PRN RONDA Furosemide 40 mg 09/17/18 18:00 Lasix PO 0600,1800 RONDA Hydralazine HCl 100 mg 09/15/18 14:00 09/17/18 09:47 Apresoline PO 100 mg TID RONDA Administration Isosorbide Dinitrate 20 mg 09/15/18 14:00 09/17/18 09:48 Isordil Titradose PO 20 mg TID RONDA Administration Metoprolol Tartrate 25 mg 09/15/18 22:00 09/17/18 09:47 Lopressor PO 25 mg BID RONDA Administration Nicotine 14 mg 09/15/18 14:00 09/17/18 09:48 Habitrol TD 14 mg DAILY RONDA Administration Ondansetron HCl 4 mg 09/14/18 23:59 Zofran IV Q8H PRN Nausea And Vomiting Oxycodone/Acetaminophen 1 tab 09/14/18 23:59 09/17/18 00:00 Percocet 5/325 PO 1 tab Q6H PRN Administration Pain, Moderate (4-6) Potassium Chloride 20 meq 09/15/18 14:00 09/17/18 09:48 K-Dur PO 20 meq QDAY RONDA Administration Sertraline HCl 100 mg 09/15/18 14:00 09/17/18 09:48 Zoloft PO 100 mg QDAY RONDA Administration Sodium Chloride 10 ml 09/15/18 10:00 09/17/18 09:48 Sodium Chloride Flush Syringe 10 Ml IV 10 ml BID RONDA Administration Sodium Chloride 10 ml 09/14/18 23:59 Sodium Chloride Flush Syringe 10 Ml IV PRN PRN LINE FLUSH Spironolactone 50 mg 09/15/18 12:00 09/17/18 09:48 Aldactone PO 50 mg QDAY RONDA Administration Temazepam 15 mg 09/16/18 22:16 09/16/18 22:22 Restoril PO 15 mg QHS PRN Administration Sleep
[2018-09-17] MEDS: CORDARONE PO SCH ×2 (11:56→21:50)
[2018-09-17] MEDS: LASIX PO SCH (18:10)
[2018-09-17] MEDS: PERCOCET 5/325 PO PRN ×2 (21:49)
[2018-09-17] MEDS: RESTORIL PO PRN (22:56)
[2018-09-18] MEDS: LASIX IV SCH (05:33)
[2018-09-18] MEDS: LASIX PO SCH ×2 (05:36→17:45)
[2018-09-18 06:06] LABS: Hematocrit 41.5 % (35.5-45.6); Hemoglobin 13.3 gm/dl (11.8-15.2); Mean Corpuscular HGB Conc 32 % (32-34); Mean Corpuscular Volume 84 fl (84-94); Platelet Count 178 K/mm3 (140-440); Red Blood Count 4.96 M/mm3 (3.65-5.03); Red Cell Distribution Width 18.3 % (13.2-15.2)
[2018-09-18 06:31] LABS: Calcium 9.1 mg/dL (8.4-10.2)
[2018-09-18] MEDS: PULMICORT IH SCH ×2 (07:29→21:20)
[2018-09-18] MEDS: BROVANA NEBU IH SCH ×2 (07:29→21:20)
[2018-09-18] MEDS: ISORDIL TITRADOSE PO SCH ×3 (09:50→21:05)
[2018-09-18] MEDS: ZOLOFT PO SCH (09:50)
[2018-09-18] MEDS: ELIQUIS PO SCH ×2 (09:50→21:04)
[2018-09-18] MEDS: K-DUR PO SCH (09:50)
[2018-09-18] MEDS: LOPRESSOR PO SCH ×2 (09:50→21:04)
[2018-09-18] MEDS: PEPCID PO SCH (09:50)
[2018-09-18] MEDS: ALDACTONE PO SCH (09:50)
[2018-09-18] MEDS: NORVASC PO SCH (09:50)
[2018-09-18] MEDS: HABITROL TD SCH (09:51)
[2018-09-18] MEDS: APRESOLINE PO SCH ×3 (09:51→21:04)
[2018-09-18] MEDS: SODIUM CHLORIDE FLUSH SYRINGE 10 ML IV SCH ×2 (09:51→21:07)
[2018-09-18] MEDS: CORDARONE PO SCH ×2 (09:51→21:05)
--- NOTE | 2018-09-18 11:06 | Progress Note ---
Assessment and Plan Cont GDMT. Serum Cr appears to be around baseline compared to prior hospitalizations. No ACEI/ARB at this time in setting of renal insufficiency. Cont Eliquis. 15 beats NSVT noted - amio, bb w/ HR in 50s/60s (nl fxn wnl), lytes ok consider nephrology consult for CKD given chronic lung disease, amio is not ideal in the detention will d/c prior to discharge if no further episodes of nsvt clinically vastly improved - Patient Problems (1) Acute HFrEF (heart failure with reduced ejection fraction) Current Visit: Yes Status: Acute (2) CHF exacerbation Current Visit: Yes Status: Acute (3) CKD (chronic kidney disease) Current Visit: Yes Status: Chronic (4) COPD (chronic obstructive pulmonary disease) Current Visit: Yes Status: Chronic (5) Chronic respiratory failure Current Visit: Yes Status: Chronic (6) History of ETOH abuse Current Visit: Yes Status: Chronic (7) History of cocaine use Current Visit: Yes Status: Chronic (8) Paroxysmal atrial flutter Current Visit: Yes Status: Chronic (9) Sleep apnea Current Visit: Yes Status: Chronic Subjective Date of service: 09/18/18 Principal diagnosis: HF Interval history: feels a lot better Objective Vital Signs Temp Pulse Pulse Resp Resp BP Pulse Ox 09/18/18 09:00 70 20 96 09/18/18 08:44 98.5 F 60 20 139/84 94 09/18/18 05:13 60 30 H 99 09/18/18 04:12 98.0 F 55 L 18 140/83 98 09/18/18 00:00 64 30 H 100 09/17/18 23:38 98.0 F 61 18 137/76 92 09/17/18 21:49 20 09/17/18 21:18 20 09/17/18 20:25 61 09/17/18 20:18 61 22 95 09/17/18 19:27 97.0 F L 61 18 147/87 90 09/17/18 12:35 98.3 F 63 20 134/86 94 - Physical Examination General: No Apparent Distress HEENT: Positive: PERRL, Normocephaly, Mucus Membranes Moist Neck: Positive: neck supple, trachea midline Neuro: Positive: Grossly Intact Abdomen: Negative: Tender Skin: Negative: Wound Musculoskeletal: No Pain Extremities: Present: edema (trace BLE) - Labs and Meds CBC 09/18/18 Range/Units 05:22 WBC 7.0 (4.5-11.0) K/mm3 RBC 4.96 (3.65-5.03) M/mm3 Hgb 13.3 (11.8-15.2) gm/dl Hct 41.5 (35.5-45.6) % Plt Count 178 (140-440) K/mm3 Comprehensive Metabolic Panel 09/18/18 Range/Units 05:22 Sodium 142 (137-145) mmol/L Potassium 3.9 (3.6-5.0) mmol/L Chloride 101.7 (98-107) mmol/L Carbon Dioxide 26 (22-30) mmol/L BUN 32 H (9-20) mg/dL Creatinine 1.7 H (0.8-1.5) mg/dL Glucose 106 H (75-100) mg/dL Calcium 9.1 (8.4-10.2) mg/dL - Imaging and Cardiology EKG: report reviewed, image reviewed Echo: pending, report reviewed ( [place] 05/29/2017 showed EF 25%, AV sclerosis, mod dilated LA, mod LVH, small pericardial effusion, mod dilated RA, grade 3 diastolic dysfunction, mild TR, mild MVR, moderately enlarged RV cavity size, moderately reduced RV systolic function, pulmonary HTN with RVSP 56.7mmHg. ) - EKG Sinus rhythms and dysrhythmias: sinus rhythm Ventricular dysrhythmias: ventricular premature com
--- NOTE | 2018-09-18 12:50 | Progress Note ---
Assessment and Plan Assessment and plan: Patient is a 53 yo man with a history of hypertension, A. fib, CHF, CMP EF 25%, p. aflutter on Eliquis, COPD and chronic kidney disease, CMP with EF 25%, paroxysmal atrial flutter on Eliquis, chronic respiratory failure on 3 liters home O2 due to end stage COPD on home O2, newly diagnosed SADE (has not received CPAP at home yet), pulmonary HTN, tobacco use, prior ETOH use and cocaine use who presents to [facility] ED with sob. His Cardiology is Dr. Markell Garcia at [facility] and he made new medications changes recently: the lasix was changed to torsemide, the Coreg was changed to metoprolol tartate. Of note, pt was discharged from [facility] in 06/[address]. He states that he temporarily moved to [place] after that hospitalization and was told by a roll forming machine operator in [place] that his heart function improved on f/u echo and LifeVest was discontinued. He believes his last echo was in [place] in 10/2017. * Echo done at [place] 05/29/2017 showed EF 25%, AV sclerosis, mod dilated LA, mod LVH, small pericardial effusion, mod dilated RA, grade 3 diastolic dysfunction, mild TR, mild MVR, moderately enlarged RV cavity size, moderately reduced RV systolic function, pulmonary HTN with RVSP 56.7mmHg. * Pt underwent pharmacologic MPI stress test at [place] in 04/2017 which was negative for ischemia, EF 35%. * pCXR shows mild degree Cardiomegaly with mild degree pulmonary venous congestion * 2D ECHO 09/15/2018 Conclusions: Technically limited due to patient body habitus, mild to moderated concentric LVH, estimated EF 50-55%, abnormal LV diastolic function Acute on chronic diastolic heart failure, EF 50%: treat with iv lasix, Cardiology following, input noted Chronic hypoxic respiratory failure on 3 liters at home: continue O2 SADE: consult RT for SADE assessment Morbid obesity, bmi 41: senior living sales counselor on lifestyle modifications Elevated troponin due to increase demand: Cardiology consulted, input noted p. A. fib/a. flutter: continue Eliquis and coreg Hypertension: cardiac diet and antihypertensives Tobacco dependency: senior living sales counselor on stopping and ordered nicotine patch COPD: continue neb and o2 Chronic kidney disease 3, baseline Cr ~2.0: monitor bmp closely, consulted Nephrology per Dr. Ary Kang's request New issue NSVT, 15 beat run on 09/17/18: Started Amiodarone by Silk Folder. I ordered TSH D/w Silk Folder, Dr. Ary Kang, no stress test for tomorrow History Interval history: Patient was seen and examined. Follow-up on current diagnosis of CHF. No overnight events reported to me. Patient denies any chest pain, nausea/vomiting or severe headaches. Imaging, nursing note, chart, labs and old chart reviewed. Discussed with patient. Sob is improving Hospitalist Physical - Physical exam Narrative exam: Gen: WDWN, NAD, Awake, Alert, Orientated HEENT: NCAT, EOMI, PERRL, OP Clear Neck: supple, no adenopathy, no thyromegaly, no JVD CVS/Heart: RRR, normal S1S2, pulses present bilaterally Chest/Lungs: diminished bs bilateral, Symmetrical chest expansion, good air entry bilaterally GI/Abdomen: soft, NTND, good bowel sounds, no guarding or rebound /Bladder: no suprapubic tenderness, no CVA or paraspinal tenderness Extermity/Skin: trace pretibial ble edema, no obvious rash MSK: FROM x 4 Neuro: CN 2-12 grossly intact, no new focal deficits Psych: calm - Constitutional Vitals: Temp Pulse Resp BP Pulse Ox 98.5 F 70 20 139/84 96 09/18/18 08:44 09/18/18 09:00 09/18/18 09:00 09/18/18 08:44 09/18/18 09:00 General appearance: Present: no acute distress Results - Labs CBC & Chem 7: 09/18/18 05:22 09/18/18 05:22 Labs: Laboratory Last Values WBC 7.0 K/mm3 (4.5-11.0) 09/18/18 05:22 RBC 4.96 M/mm3 (3.65-5.03) 09/18/18 05:22 Hgb 13.3 gm/dl (11.8-15.2) 09/18/18 05:22 Hct 41.5 % (35.5-45.6) 09/18/18 05:22 MCV 84 fl (84-94) 09/18/18 05:22 MCH 27 pg (28-32) L 09/18/18 05:22 MCHC 32 % (32-34) 09/18/18 05:22 RDW 18.3 % (13.2-15.2) H 09/18/18 05:22 Plt Count 178 K/mm3 (140-440) 09/18/18 05:22 Lymph % (Auto) 16.0 % (13.4-35.0) 09/14/18 20:38 [place] % (Auto) 9.0 % (0.0-7.3) H 09/14/18 20:38 Eos % (Auto) 1.7 % (0.0-4.3) 09/14/18 20:38 Baso % (Auto) 0.3 % (0.0-1.8) 09/14/18 20:38 Lymph # 1.2 K/mm3 (1.2-5.4) 09/14/18 20:38 [place] # 0.7 K/mm3 (0.0-0.8) 09/14/18 20:38 Eos # 0.1 K/mm3 (0.0-0.4) 09/14/18 20:38 Baso # 0.0 K/mm3 (0.0-0.1) 09/14/18 20:38 Add Manual Diff Complete 09/15/18 06:47 Total Counted 100 09/15/18 06:47 Seg Neutrophils % Interior Design Coordinator 09/15/18 06:47 Seg Neuts % (Manual) 94.0 % (40.0-70.0) H 09/15/18 06:47 0 % 09/15/18 06:47 5.0 % (13.4-35.0) L 09/15/18 06:47 Reactive Lymphs % (Man) 0 % 09/15/18 06:47 1.0 % (0.0-7.3) 09/15/18 06:47 0 % (0.0-4.3) 09/15/18 06:47 0 % (0.0-1.8) 09/15/18 06:47 0 % 09/15/18 06:47 0 % 09/15/18 06:47 0 % 09/15/18 06:47 0 % 09/15/18 06:47 Nucleated RBC % Not Reportable 09/15/18 06:47 Seg Neutrophils # 5.3 K/mm3 (1.8-7.7) 09/14/18 20:38 Seg Neutrophils # Man 7.1 K/mm3 (1.8-7.7) 09/15/18 06:47 Band Neutrophils # 0.0 K/mm3 09/15/18 06:47 0.4 K/mm3 (1.2-5.4) L 09/15/18 06:47 Abs React Lymphs (Man) 0.0 K/mm3 09/15/18 06:47 0.1 K/mm3 (0.0-0.8) 09/15/18 06:47 0.0 K/mm3 (0.0-0.4) 09/15/18 06:47 0.0 K/mm3 (0.0-0.1) 09/15/18 06:47 0.0 K/mm3 09/15/18 06:47 0.0 K/mm3 09/15/18 06:47 0.0 K/mm3 09/15/18 06:47 Blast Cells # 0.0 K/mm3 09/15/18 06:47 WBC Morphology Not Reportable 09/15/18 06:47 Hypersegmented Neuts Not Reportable 09/15/18 06:47 Hyposegmented Neuts Not Reportable 09/15/18 06:47 Hypogranular Neuts Not Reportable 09/15/18 06:47 Not Reportable 09/15/18 06:47 Not Reportable 09/15/18 06:47 Not Reportable 09/15/18 06:47 Not Reportable 09/15/18 06:47 Not Reportable 09/15/18 06:47 Not Reportable 09/15/18 06:47 Consistent w auto 09/15/18 06:47 Not Reportable 09/15/18 06:47 Plt Clumps, EDTA Not Reportable 09/15/18 06:47 Not Reportable 09/15/18 06:47 Rare 09/15/18 06:47 Not Reportable 09/15/18 06:47 Plt Morphology Comment Not Reportable 09/15/18 06:47 RBC Morphology Not Reportable 09/15/18 06:47 Dimorphic RBCs Not Reportable 09/15/18 06:47 Not Reportable 09/15/18 06:47 Not Reportable 09/15/18 06:47 Not Reportable 09/15/18 06:47 Not Reportable 09/15/18 06:47 Not Reportable 09/15/18 06:47 Not Reportable 09/15/18 06:47 Not Reportable 09/15/18 06:47 Not Reportable 09/15/18 06:47 Not Reportable 09/15/18 06:47 Not Reportable 09/15/18 06:47 Not Reportable 09/15/18 06:47 Not Reportable 09/15/18 06:47 Not Reportable 09/15/18 06:47 Not Reportable 09/15/18 06:47 Not Reportable 09/15/18 06:47 Not Reportable 09/15/18 06:47 Not Reportable 09/15/18 06:47 Not Reportable 09/15/18 06:47 Not Reportable 09/15/18 06:47 Acanthocytes (Spur) Not Reportable 09/15/18 06:47 Rouleaux Not Reportable 09/15/18 06:47 Not Reportable 09/15/18 06:47 Not Reportable 09/15/18 06:47 Not Reportable 09/15/18 06:47 Not Reportable 09/15/18 06:47 Hem Pathologist Commnt No 09/15/18 06:47 PT 16.2 Sec. (12.2-14.9) H 09/14/18 20:38 INR 1.22 (0.87-1.13) H 09/14/18 20:38 APTT 33.0 Sec. (24.2-36.6) 09/14/18 20:38 Sodium 142 mmol/L (137-145) 09/18/18 05:22 Potassium 3.9 mmol/L (3.6-5.0) 09/18/18 05:22 Chloride 101.7 mmol/L (98-107) 09/18/18 05:22 Carbon Dioxide 26 mmol/L (22-30) 09/18/18 05:22 18 mmol/L 09/18/18 05:22 BUN 32 mg/dL (9-20) H 09/18/18 05:22 1.7 mg/dL (0.8-1.5) H 09/18/18 05:22 Estimated GFR 51 ml/min 09/18/18 05:22 19 % 09/18/18 05:22 Glucose 106 mg/dL (75-100) H 09/18/18 05:22 Calcium 9.1 mg/dL (8.4-10.2) 09/18/18 05:22 Magnesium 2.50 mg/dL (1.7-2.3) H 09/18/18 05:22 122 units/L (55-170) 09/15/18 06:47 CK-MB (CK-2) 2.7 ng/mL (0.0-4.0) 09/15/18 06:47 CK-MB (CK-2) Rel Index 2.2 (0-4) 09/15/18 06:47 < 0.010 ng/mL (0.00-0.029) 09/15/18 06:47 NT-Pro-B Natriuret Pep 896.1 pg/mL (0-900) 09/14/18 20:38 Triglycerides 95 mg/dL (2-149) 09/14/18 20:38 Cholesterol 100 mg/dL (50-199) 09/14/18 20:38 59 mg/dL (50-130) 09/14/18 20:38 34 mg/dL (40-59) L 09/14/18 20:38 2.94 % 09/14/18 20:38 TSH 0.273 mlU/mL (0.270-4.200) 09/18/18 09:58 Active Medications - Current Medications Current Medications: Generic Name Dose Route Start Last Admin Trade Name Freq PRN Reason Stop Dose Admin Acetaminophen 650 mg 09/14/18 23:59 Tylenol PO Q4H PRN Pain MILD(1-3)/Fever >100.5/SHRESTHA Amiodarone HCl 200 mg 09/17/18 12:00 09/18/18 09:51 Cordarone PO 200 mg BID RONDA Administration Amlodipine Besylate 5 mg 09/15/18 14:00 09/18/18 09:50 Norvasc PO 5 mg QDAY RONDA Administration Apixaban 5 mg 09/15/18 22:00 09/18/18 09:50 Eliquis PO 5 mg BID RONDA Administration Protocol Arformoterol Tartrate 15 mcg 09/15/18 20:00 09/18/18 07:29 Brovana Nebu IH 15 mcg Q12HRT RONDA Administration Atorvastatin Calcium 40 mg 09/15/18 22:00 09/17/18 21:50 Lipitor PO 40 mg QHS RONDA Administration Benzonatate 100 mg 09/15/18 10:00 09/15/18 13:46 Tessalon Perles PO 100 mg Q8H PRN Administration Cough Budesonide 1 mg 09/15/18 20:00 09/18/18 07:29 Pulmicort IH 1 mg Q12HRT RONDA Administration Famotidine 20 mg 09/16/18 10:00 09/18/18 09:50 Pepcid PO 20 mg DAILY RONDA Administration Fluticasone Propionate 50 mcg 09/15/18 11:00 Flonase NS PRN RONDA Furosemide 40 mg 09/17/18 18:00 09/18/18 05:36 Lasix PO 40 mg 0600,1800 RONDA Administration Hydralazine HCl 100 mg 09/15/18 14:00 09/18/18 09:51 Apresoline PO 100 mg TID RONDA Administration Isosorbide Dinitrate 20 mg 09/15/18 14:00 09/18/18 09:50 Isordil Titradose PO 20 mg TID RONDA Administration Metoprolol Tartrate 25 mg 09/15/18 22:00 09/18/18 09:50 Lopressor PO 25 mg BID RONDA Administration Nicotine 14 mg 09/15/18 14:00 09/18/18 09:51 Habitrol TD 14 mg DAILY [facility] Administration Ondansetron HCl 4 mg 09/14/18 23:59 Zofran IV Q8H PRN Nausea And Vomiting Oxycodone/Acetaminophen 1 tab 09/14/18 23:59 09/17/18 21:49 Percocet 5/325 PO 1 tab Q6H PRN Administration Pain, Moderate (4-6) Potassium Chloride 20 meq 09/15/18 14:00 09/18/18 09:50 K-Dur PO 20 meq QDAY RONDA Administration Sertraline HCl 100 mg 09/15/18 14:00 09/18/18 09:50 Zoloft PO 100 mg QDAY RONDA Administration Sodium Chloride 10 ml 09/15/18 10:00 09/18/18 09:51 Sodium Chloride Flush Syringe 10 Ml IV 10 ml BID RONDA Administration Sodium Chloride 10 ml 09/14/18 23:59 Sodium Chloride Flush Syringe 10 Ml IV PRN PRN LINE FLUSH Spironolactone 50 mg 09/15/18 12:00 09/18/18 09:50 Aldactone PO 50 mg QDAY RONDA Administration Temazepam 15 mg 09/16/18 22:16 09/17/18 22:56 Restoril PO 15 mg QHS PRN Administration Sleep
[2018-09-18] MEDS: RESTORIL PO PRN (23:25)
[2018-09-19] MEDS: LASIX PO SCH (06:18)
[2018-09-19] MEDS: PULMICORT IH SCH (07:44)
[2018-09-19] MEDS: BROVANA NEBU IH SCH (07:45)
[2018-09-19] MEDS ORDERED: DOBUTamine 100 MG in D5W 92 ML IV NR (08:25)
[2018-09-19] MEDS: APRESOLINE PO SCH ×2 (09:03→13:51)
[2018-09-19] MEDS: ZOLOFT PO SCH (09:03)
[2018-09-19] MEDS: ELIQUIS PO SCH (09:03)
[2018-09-19] MEDS: HABITROL TD SCH (09:03)
[2018-09-19] MEDS: LOPRESSOR PO SCH (09:04)
[2018-09-19] MEDS: K-DUR PO SCH (09:04)
[2018-09-19] MEDS: NORVASC PO SCH (09:04)
[2018-09-19] MEDS: CORDARONE PO SCH (09:04)
[2018-09-19] MEDS: ISORDIL TITRADOSE PO SCH ×2 (09:04→13:50)
[2018-09-19] MEDS: ALDACTONE PO SCH (09:04)
[2018-09-19] MEDS: PEPCID PO SCH (09:04)
[2018-09-19] MEDS: SODIUM CHLORIDE FLUSH SYRINGE 10 ML IV SCH (09:05)
[2018-09-19] MEDS ORDERED: ATROPINE ONE (11:30)
[2018-09-19] MEDS ORDERED: ATROPINE IV ONE (12:00)
--- NOTE | 2018-09-19 12:56 | Progress Note ---
Assessment and Plan acute diastolic heart failure acute on chronic respiratory failure acute on chronic renal failure nstemi type 2 htn chol nsvtach rec: in view of reversible ischemia and will cont lorpessor, hold coreg, stop amio in view of chronic lung disease and cont lasix 40mg bid, pt followup with primary health safety coordinator in [facility]. Subjective Date of service: 09/19/18 Principal diagnosis: HF Interval history: sob is better pt on 3l nc Objective Vital Signs Temp Pulse Pulse Pulse Pulse Resp Resp 09/19/18 09:04 63 09/19/18 09:00 60 09/19/18 08:59 98.1 F 63 20 09/19/18 07:55 65 20 09/19/18 07:45 60 20 09/19/18 04:24 98.0 F 57 L 18 09/19/18 00:08 64 26 H 09/19/18 00:07 98.0 F 59 L 18 09/18/18 21:25 66 09/18/18 21:21 09/18/18 21:12 63 09/18/18 21:05 67 09/18/18 21:04 67 09/18/18 21:00 64 64 26 H 09/18/18 19:20 98.0 F 67 18 09/18/18 17:18 98.6 F 59 L 20 09/18/18 13:10 98.3 F 61 20 Resp BP Pulse Ox 09/19/18 09:04 141/90 09/19/18 09:00 09/19/18 08:59 141/90 92 09/19/18 07:55 09/19/18 07:45 97 09/19/18 04:24 134/83 99 09/19/18 00:08 100 09/19/18 00:07 129/68 100 09/18/18 21:25 22 09/18/18 21:21 100 09/18/18 21:12 22 09/18/18 21:05 152/85 09/18/18 21:04 152/85 09/18/18 21:00 09/18/18 19:20 152/85 88 09/18/18 17:18 147/89 93 09/18/18 13:10 119/75 94 - Physical Examination General: No Apparent Distress HEENT: Positive: PERRL, Normocephaly, Mucus Membranes Moist Neck: Positive: neck supple, trachea midline Cardiac: Positive: Reg Rate and Rhythm Lungs: Positive: Decreased Breath Sounds Neuro: Positive: Grossly Intact Abdomen: Negative: Tender Skin: Negative: Wound Musculoskeletal: No Pain Extremities: Present: edema (trace BLE, chronic changes) - Imaging and Cardiology EKG: report reviewed, image reviewed Pharmacologic stress test: report reviewed (no signficant ischemia fixed anterior and inferior defect ef 43%) Echo: pending, report reviewed ( [place] 05/29/2017 showed EF 25%, AV sclerosis, mod dilated LA, mod LVH, small pericardial effusion, mod dilated RA, grade 3 diastolic dysfunction, mild TR, mild MVR, moderately enlarged RV cavity size, moderately reduced RV systolic function, pulmonary HTN with RVSP 56.7mmHg. ) - Telemetry EKG Rhythm: Sinus Rhythm (no vtach for 24 hours) - EKG Sinus rhythms and dysrhythmias: sinus rhythm Ventricular dysrhythmias: ventricular premature com
--- NOTE | 2018-09-19 13:16 | Discharge Summary ---
Providers - Providers Date of Admission: 09/14/18 23:24 Date of discharge: 09/19/18 Attending physician: SHAY SILVA 09/14/18 22:36 Consult to Physician [CONS] Stat Comment: Dr. Cueto spoke with Dr. Nelson @ [phone] Consulting Provider: VIVIANA NELSON Physician Instructions: Reason For Exam: SOB, ELEVATED TROPONIN Primary care physician: KAYLA LOVELL Hospitalization Condition: Stable Hospital course: Patient is a 53 yo man with a history of hypertension, A. fib, CHF, CMP EF 25%, p. aflutter on Eliquis, COPD and chronic kidney disease, CMP with EF 25%, paroxysmal atrial flutter on Eliquis, chronic respiratory failure on 3 liters home O2 due to end stage COPD on home O2, newly diagnosed SADE (has not received CPAP at home yet), pulmonary HTN, tobacco use, prior ETOH use and cocaine use who presents to [facility] ED with sob. His Cardiology is Dr. Markell Garcia at [facility] and he made new medications changes recently: the lasix was changed to torsemide, the Coreg was changed to metoprolol tartate. Of note, pt was discharged from [facility] in 06/[address]. He states that he temporarily moved to [place] after that hospitalization and was told by a natural resources professor in [place] that his heart function improved on f/u echo and LifeVest was discontinued. He believes his last echo was in [place] in 10/2017. * Echo done at [place] 05/29/2017 showed EF 25%, AV sclerosis, mod dilated LA, mod LVH, small pericardial effusion, mod dilated RA, grade 3 diastolic dysfunction, mild TR, mild MVR, moderately enlarged RV cavity size, moderately reduced RV systolic function, pulmonary HTN with RVSP 56.7mmHg. * Pt underwent pharmacologic MPI stress test at [place] in 04/2017 which was negative for ischemia, EF 35%. * pCXR shows mild degree Cardiomegaly with mild degree pulmonary venous congestion * 2D ECHO 09/15/2018 Conclusions: Technically limited due to patient body habitus, mild to moderated concentric LVH, estimated EF 50-55%, abnormal LV diastolic function Acute on chronic diastolic heart failure, EF 50%: treat with iv lasix, Cardiology following, input noted Chronic hypoxic respiratory failure on 3 liters at home: continue O2 SADE: consult RT for SADE assessment Morbid obesity, bmi 41: residential youth counselor on lifestyle modifications Elevated troponin due to increase demand: Cardiology consulted, input noted p. A. fib/a. flutter: continue Eliquis and coreg Hypertension: cardiac diet and antihypertensives Tobacco dependency: residential youth counselor on stopping and ordered nicotine patch COPD: continue neb and o2 Chronic kidney disease 3, baseline Cr ~2.0: monitor bmp closely, consulted Nephrology per Dr. Ary Nelson's request New issue NSVT, 15 beat run on 09/17/18: Started Amiodarone by Step Finisher but stopped because of lung disease. I ordered TSH, d/w wendy Acosta to discharge with the following recs: in view of reversible ischemia and will cont lorpessor, hold coreg, stop amio in view of chronic lung disease and cont lasix 40mg bid, pt followup with primary natural resources professor in [facility]. Disposition: DC-01 TO HOME OR SELFCARE Time spent for discharge: 35 minutes Core Measure Documentation - Palliative Care Palliative Care/ Comfort Measures: Not Applicable - Core Measures Any of the following diagnoses?: heart failure - VTE Discharge Requirements Deep Vein Thrombosis/Pulmonary Embolism Present on Admission: No Has pt received <5 days of overlap therapy or INR<2.0: No Anticoagulant overlap therapy prescribed at discharge: No Contraindication No Overlap Therapy order at DC: Not Indicated - Heart Failure Discharge Requirements JAILYN/ARB for LVSD if EF <40%: Not Applicable Reason for no JAILYN/ARB: Renal impairment Beta gary at discharge: Yes Exam - Physical Exam Narrative exam: Gen: WDWN, NAD, Awake, Alert, Orientated HEENT: NCAT, EOMI, PERRL, OP Clear Neck: supple, no adenopathy, no thyromegaly, no JVD CVS/Heart: RRR, normal S1S2, pulses present bilaterally Chest/Lungs: diminished bs bilateral but improved, Symmetrical chest expansion, good air entry bilaterally GI/Abdomen: soft, NTND, good bowel sounds, no guarding or rebound /Bladder: no suprapubic tenderness, no CVA or paraspinal tenderness Extermity/Skin: trace pretibial ble edema, no obvious rash MSK: FROM x 4 Neuro: CN 2-12 grossly intact, no new focal deficits Psych: calm - Constitutional Vitals: Temp Pulse Resp BP Pulse Ox 98.1 F 63 20 141/90 92 05/13/19 08:59 09/19/18 09:04 09/19/18 08:59 09/19/18 09:04 09/19/18 08:59 Plan Activity: other (no strenous activity unless cleared by your Step Finisher) Diet: low salt Additional Instructions: Follow up with your Step Finisher at [facility], make the first available appointment Follow up with: KAYLA LOVELL MD [Primary Care Provider] - 3-5 Days Prescriptions: Temazepam [Restoril] 15 mg PO QHS PRN #15 capsule PRN Reason: Sleep Spironolactone [Aldactone] 50 mg PO QDAY #30 tablet hydrALAZINE [Apresoline TAB] 100 mg PO TID #90 tab Fluticasone [Flonase] 50 mcg INNOSTRIL DAILY PRN #1 bottle PRN Reason: Allergy Symptoms Potassium Chloride [K-Dur] 20 meq PO QDAY #30 tablet Furosemide [Lasix TAB] 40 mg PO 0600,1800 #60 tablet Metoprolol [Lopressor TAB] 25 mg PO BID #60 tablet Nicotine [Nicotine Patch] 14 mg TD DAILY #14 patch.td24 oxyCODONE /ACETAMINOPHEN [Percocet 5/325 mg] 1 tab PO Q6H PRN #8 tablet PRN Reason: Pain , Severe (7-10) ALBUTEROL NEB's [Proventil 0.083% NEBS] 2.5 mg IH TID PRN #30 neb PRN Reason: Shortness Of Breath ALBUTEROL Inhaler(NF) [VENTOLIN Inhaler(NF)] 2 puff IH Q6H PRN #1 inha PRN Reason: Shortness Of Breath
[2018-09-19 16:07] VITALS: BP 141/80
--- NOTE | 2018-09-20 11:14 | Treadmill Report ---
DOBUTAMINE NUCLEAR STRESS TEST REASON FOR STUDY: Nonsustained ventricular tachycardia, abnormal troponin. IMAGING PROTOCOL: The patient received 10 mCi of Technetium 99m Tetrofosmin for resting image and 28 mCi of Technetium 99m Tetrofosmin for stress imaging. The imaging for the whole procedure was completed 30-90 minutes following the initial injection of Technetium 99m Tetrofosmin. The SPECT imaging in the 180 degree arc was performed in the right anterior oblique projection. Computerized reconstruction of the images was performed for analysis. IMAGING RESULTS: Cavity is mildly dilated with stress and rest. Distribution of radionuclide is normal in the septal, lateral, apical region, mildly decrease in the anterior, inferior region, both stress and rest with gated SPECT, EF 43% with mild global hypokinesis. The patient was infused with dobutamine and achieved a max heart rate of 130 beats per minute, which is 80% max predicted heart rate. The patient was on 40 mcg of dobutamine and 1.5 mg of atropine given to get the maximum heart rate tolerable. No EKG changes to suggest ischemia. SUMMARY: 1. Negative dobutamine EKG, 80% max predicted heart rate after 40 mcg of dobutamine and 1.5 mg of atropine. 2. No exaggerated BP response ____. 3. No significant stress induced ischemia noted. Mild fixed anterior, inferior defect with gated SPECT, EF 43% noted. JOB# [id number] ROSELYN/MAG
== END 2018-09-19 17:45 | disposition home or self-care (01) | DRG 280 ==
LOC: ED 19:24 → 4A 23:24
PROVIDERS: ADMIT Internal Medicine; ATTEND Internal Medicine
PROC: 5A09357 Assistance with Respiratory Ventilation, Less than 24 Consecutive Hours, Continuous Positive Airway Pressure (ICD-10-PCS; principal; 2018-09-16)
PROC: 5A09457 Assistance with Respiratory Ventilation, 24-96 Consecutive Hours, Continuous Positive Airway Pressure (ICD-10-PCS; 2018-09-18)
DX: I13.0 Hypertensive heart and chronic kidney disease with heart failure and stage 1 through stage 4 chronic kidney disease, or unspecified chronic kidney disease (principal); I21.A1 Myocardial infarction type 2; J96.21 Acute and chronic respiratory failure with hypoxia; I50.23 Acute on chronic systolic (congestive) heart failure; I48.91 Unspecified atrial fibrillation; E66.01 Morbid (severe) obesity due to excess calories; J44.9 Chronic obstructive pulmonary disease, unspecified; G47.33 Obstructive sleep apnea (adult) (pediatric); I48.92 Unspecified atrial flutter; F17.200 Nicotine dependence, unspecified, uncomplicated; N18.3 Chronic kidney disease, stage 3 (moderate); I47.1 Supraventricular tachycardia; N17.9 Acute kidney failure, unspecified; J98.4 Other disorders of lung; I42.8 Other cardiomyopathies; Z68.41 Body mass index [BMI] 40.0-44.9, adult; Z79.01 Long term (current) use of anticoagulants; Z99.81 Dependence on supplemental oxygen; Z71.6 Tobacco abuse counseling; Z79.899 Other long term (current) drug therapy; Z82.49 Family history of ischemic heart disease and other diseases of the circulatory system
CPT/HCPCS: 36415; 71045; 78452; 80048; 80061; 82550; 82553; 83735; 83880; 84443; 84484; 85007; 85025; 85027; 85610; 85730; 87116; 93005; 93010; 93017; 93306; 94640; 94660; 94760; 96365; 96374; 96375; G0378; A9270-GY; A9502; J0461; J1250; J1650; J1940; J2930

== ENCOUNTER 2020-03-09 17:27 | Inpatient (IN) | payer MEDICAID ==
--- NOTE | 2020-03-09 18:11 | XRay Report ---
CHEST 1 VIEW INDICATION / CLINICAL INFORMATION: sob, hypoxia. COMPARISON: 09/14/2018 FINDINGS: SUPPORT DEVICES: None. HEART / MEDIASTINUM: Cardiac silhouette size is mildly enlarged but unchanged from prior exam. LUNGS / PLEURA: Mild to moderate interstitial pulmonary edema is present. No suggestion of pneumonia or significant pleural effusion. No pneumothorax. ADDITIONAL FINDINGS: No significant additional findings. IMPRESSION: 1. Cardiomegaly with mild to moderate interstitial pulmonary edema. Signer Name: Katarina Richter MD Signed: 03/09/2020 6:06 PM Workstation Name: [id number]
[2020-03-09 18:36] LABS: Albumin 3.8 g/dL (3.9-5); Calcium 9.1 mg/dL (8.4-10.2)
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
[2020-03-09 18:39] LABS: Basophils % (Auto) 0.2 % (0.0-1.8); Eosinophils # (Auto) 0.1 K/mm3 (0.0-0.4); Eosinophils % (Auto) 0.5 % (0.0-4.3); Hematocrit 45.1 % (35.5-45.6); Hemoglobin 14.7 gm/dl (11.8-15.2); Lymphocytes # (Auto) 0.9 K/mm3 (1.2-5.4); Lymphocytes % (Auto) 8.9 % (13.4-35.0); Mean Corpuscular HGB Conc 33 % (32-34); Mean Corpuscular Volume 83 fl (84-94); Monocytes # (Auto) 0.7 K/mm3 (0.0-0.8); Platelet Count 148 K/mm3 (140-440); Red Blood Count 5.45 M/mm3 (3.65-5.03); Red Cell Distribution Width 19.7 % (13.2-15.2)
[2020-03-09 18:44] LABS: INR 1.47 (0.87-1.13)
[2020-03-09 18:52] LABS: Chol/HDL Ratio 1.96 %
[2020-03-09] MEDS ORDERED: POTASSIUM CHLORIDE ER 20 MEQ TAB PO ONE (18:57)
[2020-03-09] MEDS ORDERED: IPRATROPIUM/ALBUTEROL SULFATE 3 ML AMPUL.NEB IH ONE (18:57)
[2020-03-09] MEDS ORDERED: FUROSEMIDE 40 MG/4 ML INJ IV ONE (18:58)
[2020-03-09] MEDS ORDERED: ONDANSETRON 4 MG/2 ML INJ IV PRN (21:41)
[2020-03-09] MEDS ORDERED: MAGNESIUM HYDROXIDE (MOM) ORAL LIQD UDC PO PRN (21:41)
--- NOTE | 2020-03-09 21:51 | History and Physical Report ---
History of Present Illness Date of examination: 03/09/20 Date of admission: 03/09/2020 Chief complaint: Shortness of Breath Weight Gain History of present illness: 54-year-old male with known history of hypertension, atrial fibrillation, CHF with ejection fraction of 25%, COPD on 3 L of oxygen at home, chronic kidney disease, obstructive sleep apnea on CPAP at home, portal hypertension presenting to the emergency room today with a 3-day history of shortness of breath. Shortness of breath has gotten worse over the past few days. Patient indicates that he has been compliant with his medication torsemide but he has been having increasing swelling in his lower extremities and also in his abdomen. He has been about 10 pounds in the past in the past few weeks and feels his abdomen is feeling distended. Patient follows up at [facility] and presented in this hospital today because he was visiting family nearby. He did not have his oxygen tank with him and decided to check into the emergency room here as his symptoms were getting worse. Patient denies any fever or chills, no nausea vomiting, no diarrhea, no abdominal pain, no headache or dizziness. Patient denies any chest pain. Upon arrival in the emergency room today patient had an O2 saturation of about 77% on room air and was subsequently placed on oxygen by nasal cannula 4 L with improvement of oxygen saturation to about 97%. Work-up today reveals potassium level of 3.2 with a chemistry. Checks x-ray shows Cardiomegaly with mild to moderate interstitial pulmonary edema. Patient admitted for CHF exacerbation. Past History Past Medical History: COPD (On 3L of Oxygen by Nasal cannula at home.), heart failure, renal failure, other (Sleep apnea on C-Pap at home) Past Surgical History: No surgical history Social history: smoking (Former Smoker), alcohol abuse Family history: no significant family history Medications and Allergies Allergies Allergy/AdvReac Type Severity Reaction Status Date / Time lisinopril AdvReac Unknown Verified 09/19/18 04:39 Home Medications Medication Instructions Recorded Confirmed Last Taken Type Apixaban [Eliquis] 50 mg PO BID 06/24/17 09/15/18 11/02/17 History Famotidine [Heartburn Prevention] 20 mg PO DAILY 06/24/17 09/15/18 11/02/17 History ALBUTEROL Inhaler(NF) [VENTOLIN 2 puff IH Q6H PRN #1 inha 05/13/19 Unknown Rx Inhaler(NF)] ALBUTEROL NEB's [Proventil 0.083% 2.5 mg IH TID PRN #30 neb 09/19/18 Unknown Rx NEBS] Acetaminophen [Acetaminophen TAB] 325 mg PO Q4H PRN #30 tablet 09/19/18 Unknown Rx AtorvaSTATin [Lipitor] 40 mg PO QHS #30 09/19/18 09/15/18 11/02/17 Rx Fluticasone [Flonase] 50 mcg INNOSTRIL DAILY PRN #1 09/19/18 Unknown Rx bottle Furosemide [Lasix TAB] 40 mg PO 0600,1800 #60 tablet 09/19/18 Unknown Rx Isosorbide Dinitrate [Isordil] 20 mg PO TID #90 09/19/18 09/15/18 11/02/17 Rx Metoprolol [Lopressor TAB] 25 mg PO BID #60 tablet 09/19/18 Unknown Rx Nicotine [Nicotine Patch] 14 mg TD DAILY #14 patch.td24 09/19/18 Unknown Rx Potassium Chloride [K-Dur] 20 meq PO QDAY #30 tablet 09/19/18 Unknown Rx Sertraline [Zoloft] 100 mg PO QDAY #30 09/19/18 09/15/18 11/02/17 Rx Spironolactone [Aldactone] 50 mg PO QDAY #30 tablet 09/19/18 Unknown Rx Symbicort 160-4.5 Mcg Inhaler 2 inhalation IH PRN PRN #1 09/19/18 09/15/18 11/02/17 Rx Temazepam [Restoril] 15 mg PO QHS PRN #15 capsule 09/19/18 Unknown Rx amLODIPine 5 mg PO QDAY #30 tablet 09/19/18 Unknown Rx hydrALAZINE [Apresoline TAB] 100 mg PO TID #90 tab 09/19/18 Unknown Rx oxyCODONE /ACETAMINOPHEN [Percocet 1 tab PO Q6H PRN #8 tablet 09/19/18 Unknown Rx 5/325 mg] Active Meds: Active Medications Potassium Chloride (Kcl 10meq/100ml) 10 meq in 100 mls @ 100 mls/hr IV Q1H RONDA Stop: 03/09/20 21:59 Review of Systems Constitutional: weight gain, no fever, no chills Ears, nose, mouth and throat: no nasal congestion, no sore throat Cardiovascular: no chest pain, no palpitations Respiratory: shortness of breath, no cough Gastrointestinal: no abdominal pain, no nausea, no vomiting, no diarrhea Musculoskeletal: no neck pain, no low back pain Integumentary: no rash, no pruritis Neurological: no headaches, no confusion Psychiatric: no anxiety, no depression Exam - Constitutional Vitals: Temp Pulse Resp BP Pulse Ox 98.2 F 70 21 122/86 94 03/09/20 17:33 03/09/20 19:38 03/09/20 20:00 03/09/20 20:00 03/09/20 20:00 General appearance: Present: no acute distress, well-nourished, obese - EENT Eyes: Present: PERRL, EOM intact. Absent: scleral icterus ENT: hearing intact, clear oral mucosa, dentition normal - Neck Neck: Present: supple, normal ROM - Respiratory Respiratory effort: normal Respiratory: bilateral: rales - Cardiovascular Rhythm: regular Heart Sounds: Present: S1 & S2. Absent: gallop, systolic murmur, diastolic murmur, rub - Extremities Extremities: no ischemia, pulses intact, pulses symmetrical, Full ROM Extremity abnormal: edema (1+ bilateral lower extremity edema) Peripheral Pulses: within normal limits - Abdominal General gastrointestinal: Present: soft, non-tender, distended, normal bowel sounds. Absent: mass - Integumentary Integumentary: Present: clear, warm, dry. Absent: rash - Musculoskeletal Musculoskeletal: strength equal bilaterally - Psychiatric Psychiatric: appropriate mood/affect, intact judgment & insight, memory intact, cooperative - Neurologic Neurologic: CNII-XII intact, moves all extremities HEART Score - HEART Score Troponin: Troponin T 0.048 ng/mL (0.00-0.029) H 03/09/20 20:20 Results - Labs CBC & Chem 7: 03/09/20 18:00 03/09/20 18:00 Labs: Abnormal lab results 03/09/20 03/09/20 03/09/20 Range/Units 18:00 18:00 18:00 RBC 5.45 H (3.65-5.03) M/mm3 MCV 83 L (84-94) fl MCH 27 L (28-32) pg RDW 19.7 H (13.2-15.2) % Lymph % (Auto) 8.9 L (13.4-35.0) % Lymph # (Auto) 0.9 L (1.2-5.4) K/mm3 Seg Neutrophils % 83.4 H (40.0-70.0) % Seg Neutrophils # 8.6 H (1.8-7.7) K/mm3 PT (12.2-14.9) Sec. INR (0.87-1.13) APTT (24.2-36.6) Sec. Potassium 3.2 L (3.6-5.0) mmol/L BUN 25 H (9-20) mg/dL Creatinine 1.8 H (0.8-1.3) mg/dL Glucose 119 H (75-100) mg/dL Total Bilirubin 1.50 H (0.1-1.2) mg/dL Alkaline Phosphatase 145 H (35-129) units/L Total Creatine Kinase 192 H (55-170) units/L Troponin T 0.048 H (0.00-0.029) ng/mL NT-Pro-B Natriuret Pep 1640 H (0-900) pg/mL Albumin 3.8 L (3.9-5) g/dL LDL Cholesterol Direct 45 L (50-130) mg/dL 03/09/20 03/09/20 Range/Units 18:00 20:20 RBC (3.65-5.03) M/mm3 MCV (84-94) fl MCH (28-32) pg RDW (13.2-15.2) % Lymph % (Auto) (13.4-35.0) % Lymph # (Auto) (1.2-5.4) K/mm3 Seg Neutrophils % (40.0-70.0) % Seg Neutrophils # (1.8-7.7) K/mm3 PT 18.1 H (12.2-14.9) Sec. INR 1.47 H (0.87-1.13) APTT 37.0 H (24.2-36.6) Sec. Potassium (3.6-5.0) mmol/L BUN (9-20) mg/dL Creatinine (0.8-1.3) mg/dL Glucose (75-100) mg/dL Total Bilirubin (0.1-1.2) mg/dL Alkaline Phosphatase (35-129) units/L Total Creatine Kinase (55-170) units/L Troponin T 0.048 H (0.00-0.029) ng/mL NT-Pro-B Natriuret Pep (0-900) pg/mL Albumin (3.9-5) g/dL LDL Cholesterol Direct (50-130) mg/dL Assessment and Plan - Patient Problems (1) CHF exacerbation Current Visit: Yes Status: Acute Plan to address problem: Patient placed on diuretics. Will monitor daily input and output. We will also monitor daily weights. Patient will be scheduled for echocardiogram. Consult placed to cardiology for evaluation and recommendations. (2) CRI (chronic renal insufficiency) Current Visit: Yes Status: Acute Plan to address problem: We will monitor BUN and creatinine. We will place consult to nephrology if needed. (3) Hypokalemia Current Visit: Yes Status: Acute Plan to address problem: Potassium will be repleted and will monitor chemistry. (4) Obesity Current Visit: Yes Status: Chronic Plan to address problem: Dietary consult placed. We will encourage patient on lifestyle modification. (5) DVT prophylaxis Current Visit: Yes Status: Acute Plan to address problem: Patient placed on SQ. heparin. (6) Full code status Current Visit: Yes Status: Acute
[2020-03-09] MEDS ORDERED: MORPHINE 2 MG/1 ML INJ ONE (23:27)
[2020-03-09] MEDS: MORPHINE 2 MG/1 ML INJ IV PRN (23:30)
[2020-03-09] MEDS: FUROSEMIDE 40 MG/4 ML INJ IV ONE (23:34)
[2020-03-09] MEDS ORDERED: HEPARIN 5,000 UNIT/1 ML VIAL ONE (23:34)
[2020-03-09] MEDS ORDERED: POTASSIUM CHLORIDE 10 MEQ 10 MEQ/100 ML BAG IV ONE (23:35)
[2020-03-09] MEDS: HEPARIN 5,000 UNIT/1 ML VIAL SUB-Q SCH (23:40)
[2020-03-09] MEDS: POTASSIUM CHLORIDE 10 MEQ 10 MEQ/100 ML BAG IV SCH (23:43)
[2020-03-10] MEDS ORDERED: SODIUM CHLORIDE 0.9% 100 ML ONE (00:14)
[2020-03-10] MEDS ORDERED: SODIUM CHLORIDE 0.9% 100 ML IVPB IV ONE (01:00)
[2020-03-10] MEDS ORDERED: SODIUM CHLORIDE 0.9% 250ML 250 ML IV ONE (01:24)
[2020-03-10] MEDS ORDERED: POTASSIUM CHLORIDE 10 MEQ 10 MEQ/100 ML BAG IV SCH (02:00)
[2020-03-10 02:13] LABS: Amphetamine Screen,Urine PRESUMPTIVE NEGATIVE; Benzodiazepines Screen,Urine PRESUMPTIVE NEGATIVE; Cannabinoid Screen,Urine PRESUMPTIVE POSITIVE; Cocaine Screen,Urine PRESUMPTIVE POSITIVE; Methadone Screen,Urine PRESUMPTIVE NEGATIVE; Opiate Screen,Urine PRESUMPTIVE NEGATIVE
[2020-03-10 02:38] LABS: Basophils % (Auto) 0.2 % (0.0-1.8); Eosinophils % (Auto) 0.4 % (0.0-4.3); Hematocrit 45.7 % (35.5-45.6); Hemoglobin 14.9 gm/dl (11.8-15.2); Lymphocytes # (Auto) 1.3 K/mm3 (1.2-5.4); Lymphocytes % (Auto) 13.5 % (13.4-35.0); Mean Corpuscular HGB Conc 33 % (32-34); Mean Corpuscular Volume 83 fl (84-94); Monocytes # (Auto) 0.8 K/mm3 (0.0-0.8); Platelet Count 151 K/mm3 (140-440); Red Blood Count 5.53 M/mm3 (3.65-5.03)
[2020-03-10 02:45] LABS: INR 1.24 (0.87-1.13)
[2020-03-10 02:58] LABS: Calcium 9.3 mg/dL (8.4-10.2)
[2020-03-10] MEDS: POTASSIUM CHLORIDE 10 MEQ 10 MEQ/100 ML BAG IV SCH (03:23)
[2020-03-10] MEDS: HEPARIN 5,000 UNIT/1 ML VIAL SUB-Q SCH (05:58)
[2020-03-10] MEDS: FUROSEMIDE 40 MG/4 ML INJ IV SCH ×2 (05:58→17:05)
[2020-03-10] MEDS: MORPHINE 2 MG/1 ML INJ IV PRN (05:58)
[2020-03-10] MEDS: FUROSEMIDE 40 MG/4 ML INJ IV ONE (07:01)
--- NOTE | 2020-03-10 08:24 | Progress Note ---
Assessment and Plan Assessment and plan: Acute on chronic hypoxic respiratory failure. Etiology is multifactorial secondary to COPD exacerbation, obstructive sleep apnea and heart failure. Continue O2 to maintain sats greater than 92%. Patient is on home O2 of 3 L. Acute diastolic heart failure. Echocardiogram from September 2018 revealed mild to moderate concentric left ventricular hypertrophy with an EF of 50 to 55%. Abnormal left ventricular diastolic function. Patient with elevated BNP of 1640. Continue diuresis with Lasix. Cardiology consultation Acute COPD exacerbation. Continue Brovana/Pulmicort/bronchodilators Chronic kidney disease. Patient with a baseline creatinine of approximately 2.0 since 2018. Elevated troponin. Patient appears to have chronically elevated troponin. Patient noted to have troponin of 0.05 a back in 2018. Etiology likely secondary to chronic kidney disease. Cardiology consultation pending. Obstructive sleep apnea. Continue CPAP. History Interval history: No new issues overnight Hospitalist Physical - Constitutional Vitals: Temp Pulse Resp BP Pulse Ox 98.4 F 72 18 133/69 93 03/10/20 07:16 03/10/20 07:16 03/10/20 07:16 03/10/20 07:16 03/10/20 07:16 General appearance: Present: no acute distress, well-nourished, obese - EENT Eyes: Present: PERRL, EOM intact ENT: hearing intact, clear oral mucosa, dentition normal - Neck Neck: Present: supple, normal ROM - Respiratory Respiratory effort: normal Respiratory: bilateral: CTA - Cardiovascular Rhythm: regular Heart Sounds: Present: S1 & S2. Absent: gallop, rub - Extremities Extremities: no ischemia, No edema, Full ROM - Abdominal General gastrointestinal: soft, non-tender, non-distended, normal bowel sounds - Integumentary Integumentary: Present: clear, warm, dry - Neurologic Neurologic: CNII-XII intact, moves all extremities HEART Score - HEART Score Troponin: Troponin T 0.062 ng/mL (0.00-0.029) H D 03/10/20 00:15 Results - Labs CBC & Chem 7: 03/10/20 02:05 03/10/20 02:05 Labs: Laboratory Last Values WBC 9.6 K/mm3 (4.5-11.0) 03/10/20 02:05 RBC 5.53 M/mm3 (3.65-5.03) H 03/10/20 02:05 Hgb 14.9 gm/dl (11.8-15.2) 03/10/20 02:05 Hct 45.7 % (35.5-45.6) H 03/10/20 02:05 MCV 83 fl (84-94) L 03/10/20 02:05 MCH 27 pg (28-32) L 03/10/20 02:05 MCHC 33 % (32-34) 03/10/20 02:05 RDW 20.0 % (13.2-15.2) H 03/10/20 02:05 Plt Count 151 K/mm3 (140-440) 03/10/20 02:05 Lymph % (Auto) 13.5 % (13.4-35.0) 03/10/20 02:05 [place] % (Auto) 8.0 % (0.0-7.3) H 03/10/20 02:05 Eos % (Auto) 0.4 % (0.0-4.3) 03/10/20 02:05 Baso % (Auto) 0.2 % (0.0-1.8) 03/10/20 02:05 Lymph # (Auto) 1.3 K/mm3 (1.2-5.4) 03/10/20 02:05 [place] # (Auto) 0.8 K/mm3 (0.0-0.8) 03/10/20 02:05 Eos # (Auto) 0.0 K/mm3 (0.0-0.4) 03/10/20 02:05 Baso # (Auto) 0.0 K/mm3 (0.0-0.1) 03/10/20 02:05 Seg Neutrophils % 77.9 % (40.0-70.0) H 03/10/20 02:05 Seg Neutrophils # 7.4 K/mm3 (1.8-7.7) 03/10/20 02:05 PT 15.9 Sec. (12.2-14.9) H 03/10/20 02:05 INR 1.24 (0.87-1.13) H 03/10/20 02:05 APTT 37.0 Sec. (24.2-36.6) H 03/09/20 18:00 Sodium 143 mmol/L (137-145) 03/10/20 02:05 Potassium 3.7 mmol/L (3.6-5.0) 03/10/20 02:05 Chloride 100.0 mmol/L (98-107) 03/10/20 02:05 Carbon Dioxide 26 mmol/L (22-30) 03/10/20 02:05 Anion Gap 21 mmol/L 03/10/20 02:05 BUN 24 mg/dL (9-20) H 03/10/20 02:05 Creatinine 1.9 mg/dL (0.8-1.3) H 03/10/20 02:05 Estimated GFR 45 ml/min 03/10/20 02:05 BUN/Creatinine Ratio 13 % 03/10/20 02:05 Glucose 63 mg/dL (75-100) L 03/10/20 02:05 Calcium 9.3 mg/dL (8.4-10.2) 03/10/20 02:05 Magnesium 2.30 mg/dL (1.7-2.3) 03/09/20 18:00 Total Bilirubin 1.50 mg/dL (0.1-1.2) H 03/09/20 18:00 AST 23 units/L (5-40) 03/09/20 18:00 ALT 29 units/L (7-56) 03/09/20 18:00 Alkaline Phosphatase 145 units/L (35-129) H 03/09/20 18:00 Total Creatine Kinase 192 units/L (55-170) H 03/09/20 18:00 Troponin T 0.062 ng/mL (0.00-0.029) H D 03/10/20 00:15 NT-Pro-B Natriuret Pep 1640 pg/mL (0-900) H 03/09/20 18:00 Total Protein 7.5 g/dL (6.3-8.2) 03/09/20 18:00 Albumin 3.8 g/dL (3.9-5) L 03/09/20 18:00 Albumin/Globulin Ratio 1.0 % 03/09/20 18:00 Triglycerides 60 mg/dL (2-149) 03/09/20 18:00 Cholesterol 104 mg/dL (50-199) 03/09/20 18:00 LDL Cholesterol Direct 45 mg/dL (50-130) L 03/09/20 18:00 HDL Cholesterol 53 mg/dL (40-59) 03/09/20 18:00 Cholesterol/HDL Ratio 1.96 % 03/09/20 18:00 Urine Opiates Screen Presumptive negative 03/10/20 01:12 EST Urine Methadone Screen Presumptive negative 03/10/20 01:12 EST Ur Barbiturates Screen Presumptive negative 03/10/20 01:12 EST Ur Phencyclidine Scrn Presumptive negative 03/10/20 01:12 EST Ur Amphetamines Screen Presumptive negative 03/10/20 01:12 EST U Benzodiazepines Scrn Presumptive negative 03/10/20 01:12 EST Urine Cocaine Screen Presumptive positive 03/10/20 01:12 EST U Marijuana (THC) Screen Presumptive positive 03/10/20 01:12 EST Drugs of Abuse Note Disclamer 03/10/20 01:12 EST Plasma/Serum Alcohol < 0.01 % (0-0.07) 03/09/20 18:00 [place]/IV: Voiding Method Urinal IV Catheter Type [Right Hand] INT / Saline Lock Active Medications - Current Medications Current Medications: Generic Name Dose Route Start Last Admin Trade Name Freq PRN Reason Stop Dose Admin Acetaminophen 650 mg 03/09/20 21:41 Tylenol PO Q4H PRN Pain MILD(1-3)/Fever >100.5/SHRESTHA Arformoterol Tartrate 15 mcg 03/10/20 08:00 Brovana Nebu IH Q12HRT [facility] Budesonide 0.5 mg 03/10/20 08:00 Pulmicort IH Q12HRT [facility] Furosemide 40 mg 03/10/20 06:00 03/10/20 05:58 Lasix IV 40 mg BID@0600,1800 [facility] Administration Heparin Sodium (Porcine) 5,000 unit 03/09/20 22:00 03/10/20 05:58 Heparin SUB-Q Not Given Q8HR [facility] Magnesium Hydroxide 30 ml 03/09/20 21:41 Milk Of Magnesia PO Q4H PRN Constipation Morphine Sulfate 2 mg 03/09/20 21:41 03/10/20 05:58 Morphine IV 2 mg Q4H PRN Administration Pain, Moderate (4-6) Ondansetron HCl 4 mg 03/09/20 21:41 Zofran IV Q8H PRN Nausea And Vomiting Sodium Chloride 10 ml 03/09/20 22:00 03/09/20 23:34 Sodium Chloride Flush Syringe 10 Ml IV 10 ml BID RONDA Administration Sodium Chloride 10 ml 03/09/20 21:41 03/10/20 05:58 Sodium Chloride Flush Syringe 10 Ml IV 10 ml PRN PRN Administration LINE FLUSH
[2020-03-10] MEDS: ARFORMOTEROL 15 MCG/2 ML NEBU IH SCH ×2 (08:33→21:58)
[2020-03-10] MEDS: BUDESONIDE 0.5 MG/2 ML NEBU IH SCH ×2 (08:33→21:58)
--- NOTE | 2020-03-10 10:49 | Consultation ---
History of Present Illness Consult date: 03/10/20 Requesting physician: ANANT AGUILAR Consult reason: congestive heart failure History of present illness: 54-year-old male with hypertension hyperlipidemia chronic respiratory failure on oxygen diastolic heart failure patient was in [place] in January for heart failure symptoms. Secondary noncompliance with medication and diet. Has a normal LV function echocardiogram done in June. Patient has a history of p roximal atrial fibrillation with severe LV dysfunction with normalization of LV function. Patient this time was compliant with medications but was not compliant with diet with salt and fluid restriction. Causing PND orthopnea and shortness of breath with minimal exertion. Denies any fever chills or syncope. Patient also has obstructive sleep apnea on CPAP machine. Past History Past Medical History: atrial fib (Proximal), COPD (On 3L of Oxygen by Nasal cannula at home.), heart failure, hypertension, hyperlipidemia, renal failure, other (Sleep apnea on C-Pap at home) Past Surgical History: No surgical history Social history: smoking (Former Smoker quit in May 2019), alcohol abuse Family history: no significant family history Medications and Allergies Allergies Allergy/AdvReac Type Severity Reaction Status Date / Time lisinopril AdvReac Unknown Verified 09/19/18 04:39 Home Medications Medication Instructions Recorded Confirmed Last Taken Type Apixaban [Eliquis] 50 mg PO BID 06/24/17 03/10/20 11/02/17 History Famotidine [Heartburn Prevention] 20 mg PO DAILY 06/24/17 03/10/20 11/02/17 History ALBUTEROL Inhaler(NF) [VENTOLIN 2 puff IH Q6H PRN #1 inha 09/19/18 03/10/20 Unkn own Rx Inhaler(NF)] ALBUTEROL NEB's [Proventil 0.083% 2.5 mg IH TID PRN #30 neb 09/19/18 03/10/20 Unknown Rx NEBS] Acetaminophen [Acetaminophen TAB] 325 mg PO Q4H PRN #30 tablet 09/19/18 03/10/20 Unknown Rx AtorvaSTATin [Lipitor] 40 mg PO QHS #30 09/19/18 03/10/20 11/02/17 Rx Fluticasone [Flonase] 50 mcg INNOSTRIL DAILY PRN #1 09/19/18 03/10/20 Unknown Rx bottle Furosemide [Lasix TAB] 40 mg PO 0600,1800 #60 tablet 09/19/18 03/10/20 Unknown Rx Isosorbide Dinitrate [Isordil] 20 mg PO TID #90 09/19/18 03/10/20 11/02/17 Rx Metoprolol [Lopressor TAB] 25 mg PO BID #60 tablet 09/19/18 03/10/20 Unknown Rx Nicotine [Nicotine Patch] 14 mg TD DAILY #14 patch.td24 09/19/18 03/10/20 Unknown Rx Potassium Chloride [K-Dur] 20 meq PO QDAY #30 tablet 09/19/18 03/10/20 Unknown Rx Sertraline [Zoloft] 100 mg PO QDAY #30 09/19/18 03/10/20 11/02/17 Rx Spironolactone [Aldactone] 50 mg PO QDAY #30 tablet 09/19/18 03/10/20 Unknown Rx Symbicort 160-4.5 Mcg Inhaler 2 inhalation IH PRN PRN #1 09/19/18 03/10/20 11/02/17 Rx Temazepam [Restoril] 15 mg PO QHS PRN #15 capsule 09/19/18 03/10/20 Unknown Rx amLODIPine 5 mg PO QDAY #30 tablet 09/19/18 03/10/20 Unknown Rx hydrALAZINE [Apresoline TAB] 100 mg PO TID #90 tab 09/19/18 03/10/20 Unknown Rx oxyCODONE /ACETAMINOPHEN [Percocet 1 tab PO Q6H PRN #8 tablet 09/19/18 03/10/20 Unknown Rx 5/325 mg] Active Meds: Active Medications Acetaminophen (Tylenol) 650 mg PO Q4H PRN PRN Reason: Pain MILD(1-3)/Fever >100.5/SHRESTHA Arformoterol Tartrate (Brovana Nebu) 15 mcg IH Q12HRT [facility] Last Admin: 03/10/20 08:33 Dose: 15 mcg Documented by: Atorvastatin Calcium (Lipitor) 40 mg PO QHS [facility] Budesonide (Pulmicort) 0.5 mg IH Q12HRT [facility] Last Admin: 03/10/20 08:33 Dose: 0.5 mg Documented by: Furosemide (Lasix) 40 mg IV BID@0600,1800 [facility] Last Admin: 03/10/20 05:58 Dose: 40 mg Documented by: Heparin Sodium (Porcine) (Heparin) 5,000 unit SUB-Q Q8HR [facility] Last Admin: 03/10/20 05:58 Dose: Not Given Documented by: Hydralazine HCl (Apresoline) 25 mg PO Q8HR [facility] Magnesium Hydroxide (Milk Of Magnesia) 30 ml PO Q4H PRN PRN Reason: Constipation Ondansetron HCl (Zofran) 4 mg IV Q8H PRN PRN Reason: Nausea And Vomiting Sodium Chloride (Sodium Chloride Flush Syringe 10 Ml) 10 ml IV BID [facility] Last Admin: 03/10/20 09:39 Dose: 10 ml Documented by: Sodium Chloride (Sodium Chloride Flush Syringe 10 Ml) 10 ml IV PRN PRN PRN Reason: LINE FLUSH Last Admin: 03/10/20 05:58 Dose: 10 ml Documented by: Trazodone HCl (Desyrel) 50 mg PO QHS [facility] Review of Systems All systems: negative (As per the HPI) Physical Examination Vital Signs Temp Pulse Resp BP Pulse Ox 98.2 F 76 36 H 137/74 77 L 03/09/20 17:33 03/09/20 17:33 03/09/20 17:33 03/09/20 17:33 03/09/20 17:33 General appearance: no acute distress, well-nourished HEENT: Positive: PERRL, Mucus Membranes Moist Neck: Positive: neck supple, trachea midline Cardiac: Positive: Reg Rate and Rhythm, S1/S2. Negative: Audible Murmur Lungs: Positive: Decreased Breath Sounds Neuro: Positive: Grossly Intact Abdomen: Positive: Soft, Active Bowel Sounds. Negative: Tender, Distended Male genitourinary: Positive: normal Skin: Positive: Clear Incision: Cardiac Cath Site Musculoskeletal: No Pain, Normal Range of Motion Extremities: Present: normal. Absent: edema Results 03/10/20 02:05 03/10/20 02:05 Cardiac Enzymes 03/09/20 Range/Units 18:00 AST 23 (5-40) units/L Coagulation 03/09/20 03/10/20 Range/Units 18:00 02:05 PT 18.1 H 15.9 H (12.2-14.9) Sec. INR 1.47 H 1.24 H (0.87-1.13) APTT 37.0 H (24.2-36.6) Sec. Lipids 03/09/20 Range/Units 18:00 Triglycerides 60 (2-149) mg/dL Cholesterol 104 (50-199) mg/dL HDL Cholesterol 53 (40-59) mg/dL Cholesterol/HDL Ratio 1.96 % CBC 03/09/20 03/10/20 Range/Units 18:00 02:05 WBC 10.3 9.6 (4.5-11.0) K/mm3 RBC 5.45 H 5.53 H (3.65-5.03) M/mm3 Hgb 14.7 14.9 (11.8-15.2) gm/dl Hct 45.1 45.7 H (35.5-45.6) % Plt Count 148 151 (140-440) K/mm3 Lymph # (Auto) 0.9 L 1.3 (1.2-5.4) K/mm3 [place] # (Auto) 0.7 0.8 (0.0-0.8) K/mm3 Eos # (Auto) 0.1 0.0 (0.0-0.4) K/mm3 Baso # (Auto) 0.0 0.0 (0.0-0.1) K/mm3 Comprehensive Metabolic Panel 03/09/20 03/10/20 Range/Units 18:00 02:05 Sodium 141 143 (137-145) mmol/L Potassium 3.2 L 3.7 (3.6-5.0) mmol/L Chloride 99.9 100.0 (98-107) mmol/L Carbon Dioxide 24 26 (22-30) mmol/L BUN 25 H 24 H (9-20) mg/dL Creatinine 1.8 H 1.9 H (0.8-1.3) mg/dL Glucose 119 H 63 L (75-100) mg/dL Calcium 9.1 9.3 (8.4-10.2) mg/dL AST 23 (5-40) units/L ALT 29 (7-56) units/L Alkaline Phosphatase 145 H (35-129) units/L Total Protein 7.5 (6.3-8.2) g/dL Albumin 3.8 L (3.9-5) g/dL - Imaging and Cardiology Stress echo: report reviewed (2019 dobutamine stress test showed mild anterior wall ischemia) Echo: report reviewed (06/2019 normal LV function impaired relaxation pattern done at [place]) EKG interpretations - Telemetry EKG Rhythm: Sinus Rhythm (Sinus rhythm LVH nonspecific ST-T's) Assessment and Plan 54-year-old male with chronic renal sufficiency history of proximal atrial fibrillation obesity former smoker COPD chronic respiratory failure on oxygen history of diastolic heart failure. Being admitted for shortness of breath and acute diastolic heart failure secondary to noncompliance with diet and fluid restriction. Continue Lasix twice daily and change back to torsemide 100 mg every other day continue Lipitor continue hydralazine continue Eliquis 5 mg twice a day - Patient Problems (1) Acute on chronic renal failure Current Visit: Yes Status: Acute Qualifiers: Acute renal failure type: with acute tubular necrosis Chronic kidney disease stage: stage 3 (moderate) (2) Diastolic heart failure Current Visit: Yes Status: Acute Qualifiers: Heart failure chronicity: acute on chronic Qualified Code(s): I50.33 - Acute on chronic diastolic (congestive) heart failure (3) On home oxygen therapy Current Visit: Yes Status: Chronic (4) COPD (chronic obstructive pulmonary disease) Current Visit: Yes Status: Chronic (5) Chronic respiratory failure Current Visit: Yes Status: Chronic Qualifiers: Respiratory failure complication: hypoxia Qualified Code(s): J96.11 - Chronic respiratory failure with hypoxia (6) Sleep apnea Current Visit: Yes Status: Chronic Qualifiers: Sleep apnea type: central sleep apnea associated with underlying condition Qualified Code(s): G47.37 - Central sleep apnea in conditions classified elsewhere (7) CKD (chronic kidney disease) Current Visit: No Status: Chronic Qualifiers: Chronic kidney disease stage: stage 3 (moderate) (8) HTN (hypertension) Current Visit: No Status: Chronic Qualifiers: Hypertension type: essential hypertension Qualified Code(s): I10 - Essential (primary) hypertension (9) Paroxysmal atrial flutter Current Visit: No Status: Chronic
[2020-03-10] MEDS: hydrALAZINE 25 MG TAB PO SCH ×2 (13:52→21:20)
[2020-03-10] MEDS: traZODone 50 MG TAB PO SCH (21:20)
[2020-03-10] MEDS: APIXABAN 5 MG TAB PO SCH (21:20)
[2020-03-10] MEDS: ACETAMINOPHEN 325 MG TAB PO PRN (21:42)
[2020-03-11] MEDS: ACETAMINOPHEN 325 MG TAB PO PRN ×2 (04:58→21:23)
[2020-03-11] MEDS: FUROSEMIDE 40 MG/4 ML INJ IV SCH ×2 (05:00→17:19)
[2020-03-11] MEDS: hydrALAZINE 25 MG TAB PO SCH ×3 (05:00→21:22)
[2020-03-11 06:41] LABS: Basophils % (Auto) 0.2 % (0.0-1.8); Eosinophils # (Auto) 0.1 K/mm3 (0.0-0.4); Eosinophils % (Auto) 0.6 % (0.0-4.3); Hematocrit 45.5 % (35.5-45.6); Hemoglobin 14.8 gm/dl (11.8-15.2); Lymphocytes # (Auto) 0.9 K/mm3 (1.2-5.4); Lymphocytes % (Auto) 9.5 % (13.4-35.0); Mean Corpuscular HGB Conc 32 % (32-34); Mean Corpuscular Volume 84 fl (84-94); Monocytes # (Auto) 0.9 K/mm3 (0.0-0.8); Monocytes % (Auto) 8.7 % (0.0-7.3); Platelet Count 145 K/mm3 (140-440); Red Blood Count 5.42 M/mm3 (3.65-5.03); Red Cell Distribution Width 19.1 % (13.2-15.2)
[2020-03-11 07:03] LABS: BUN/Creatinine Ratio 13; Blood Urea Nitrogen 18 mg/dL (9-20); Calcium 8.9 mg/dL (8.4-10.2); Hemolysis Index 17
[2020-03-11] MEDS: BUDESONIDE 0.5 MG/2 ML NEBU IH SCH ×2 (07:33→21:39)
[2020-03-11] MEDS: ARFORMOTEROL 15 MCG/2 ML NEBU IH SCH ×2 (07:33→21:39)
--- NOTE | 2020-03-11 09:37 | Progress Note ---
Assessment and Plan Assessment and plan: Acute on chronic hypoxic respiratory failure. Etiology is multifactorial secondary to COPD exacerbation, obstructive sleep apnea and heart failure. Continue O2 to maintain sats greater than 92%. Patient is on home O2 of 3 L. Acute diastolic heart failure. Echocardiogram from September 2018 revealed mild to moderate concentric left ventricular hypertrophy with an EF of 50 to 55%. Abnormal left ventricular diastolic function. Patient with elevated BNP of 1640. Continue diuresis with Lasix. Cardiology consultation Acute COPD exacerbation. Continue Brovana/Pulmicort/bronchodilators Chronic kidney disease. Patient with a baseline creatinine of approximately 2.0 since 2018. Elevated troponin. Patient appears to have chronically elevated troponin. Patient noted to have troponin of 0.05 a back in 2018. Etiology likely secondary to chronic kidney disease. Cardiology consultation pending. Obstructive sleep apnea. Continue CPAP. 03/11/2020. Cardiology recommends to continue Lasix twice daily and change back to torsemide 100 mg every other day continue Lipitor continue hydralazine con tinue Eliquis 5 mg twice a day. Patient likely has CKD with baseline creatinine of approximately 2.0 in 2018. We will check renal ultrasound for further evaluation. History Interval history: No new issues overnight Hospitalist Physical - Constitutional Vitals: Temp Pulse Resp BP Pulse Ox 97.4 F L 74 22 164/101 96 03/11/20 08:31 03/11/20 08:31 03/11/20 08:31 03/11/20 08:31 03/11/20 08:31 General appearance: Present: no acute distress, well-nourished - EENT Eyes: Present: PERRL, EOM intact ENT: hearing intact, clear oral mucosa, dentition normal - Neck Neck: Present: supple, normal ROM - Respiratory Respiratory effort: normal Respiratory: bilateral: CTA - Cardiovascular Rhythm: regular Heart Sounds: Present: S1 & S2. Absent: gallop, rub - Extremities Extremities: no ischemia, No edema, Full ROM - Abdominal General gastrointestinal: soft, non-tender, non-distended, normal bowel sounds - Integumentary Integumentary: Present: clear, warm, dry - Neurologic Neurologic: CNII-XII intact, moves all extremities HEART Score - HEART Score Troponin: Troponin T 0.062 ng/mL (0.00-0.029) H D 03/10/20 00:15 Results - Labs CBC & Chem 7: 03/11/20 04:55 03/11/20 04:55 Labs: Laboratory Last Values WBC 9.9 K/mm3 (4.5-11.0) 03/11/20 04:55 RBC 5.42 M/mm3 (3.65-5.03) H 03/11/20 04:55 Hgb 14.8 gm/dl (11.8-15.2) 03/11/20 04:55 Hct 45.5 % (35.5-45.6) 03/11/20 04:55 MCV 84 fl (84-94) 03/11/20 04:55 MCH 27 pg (28-32) L 03/11/20 04:55 MCHC 32 % (32-34) 03/11/20 04:55 RDW 19.1 % (13.2-15.2) H 03/11/20 04:55 Plt Count 145 K/mm3 (140-440) 03/11/20 04:55 Lymph % (Auto) 9.5 % (13.4-35.0) L 03/11/20 04:55 [place] % (Auto) 8.7 % (0.0-7.3) H 03/11/20 04:55 Eos % (Auto) 0.6 % (0.0-4.3) 03/11/20 04:55 Baso % (Auto) 0.2 % (0.0-1.8) 03/11/20 04:55 Lymph # (Auto) 0.9 K/mm3 (1.2-5.4) L 03/11/20 04:55 [place] # (Auto) 0.9 K/mm3 (0.0-0.8) H 03/11/20 04:55 Eos # (Auto) 0.1 K/mm3 (0.0-0.4) 03/11/20 04:55 Baso # (Auto) 0.0 K/mm3 (0.0-0.1) 03/11/20 04:55 Seg Neutrophils % 81.0 % (40.0-70.0) H 03/11/20 04:55 Seg Neutrophils # 8.0 K/mm3 (1.8-7.7) H 03/11/20 04:55 PT 15.9 Sec. (12.2-14.9) H 03/10/20 02:05 INR 1.24 (0.87-1.13) H 03/10/20 02:05 APTT 37.0 Sec. (24.2-36.6) H 03/09/20 18:00 Sodium 143 mmol/L (137-145) 03/11/20 04:55 Potassium 3.9 mmol/L (3.6-5.0) 03/11/20 04:55 Chloride 103.4 mmol/L (98-107) 03/11/20 04:55 Carbon Dioxide 30 mmol/L (22-30) 03/11/20 04:55 Anion Gap 14 mmol/L 03/11/20 04:55 BUN 18 mg/dL (9-20) 03/11/20 04:55 Creatinine 1.4 mg/dL (0.8-1.3) H 03/11/20 04:55 Estimated GFR > 60 ml/min 03/11/20 04:55 BUN/Creatinine Ratio 13 % 03/11/20 04:55 Glucose 104 mg/dL (75-100) H 03/11/20 04:55 Calcium 8.9 mg/dL (8.4-10.2) 03/11/20 04:55 Magnesium 2.30 mg/dL (1.7-2.3) 03/09/20 18:00 Total Bilirubin 1.50 mg/dL (0.1-1.2) H 03/09/20 18:00 AST 23 units/L (5-40) 03/09/20 18:00 ALT 29 units/L (7-56) 03/09/20 18:00 Alkaline Phosphatase 145 units/L (35-129) H 03/09/20 18:00 Total Creatine Kinase 192 units/L (55-170) H 03/09/20 18:00 Troponin T 0.062 ng/mL (0.00-0.029) H D 03/10/20 00:15 NT-Pro-B Natriuret Pep 1640 pg/mL (0-900) H 03/09/20 18:00 Total Protein 7.5 g/dL (6.3-8.2) 03/09/20 18:00 Albumin 3.8 g/dL (3.9-5) L 03/09/20 18:00 Albumin/Globulin Ratio 1.0 % 03/09/20 18:00 Triglycerides 60 mg/dL (2-149) 03/09/20 18:00 Cholesterol 104 mg/dL (50-199) 03/09/20 18:00 LDL Cholesterol Direct 45 mg/dL (50-130) L 03/09/20 18:00 HDL Cholesterol 53 mg/dL (40-59) 03/09/20 18:00 Cholesterol/HDL Ratio 1.96 % 03/09/20 18:00 Urine Opiates Screen Presumptive negative 03/10/20 01:12 EST Urine Methadone Screen Presumptive negative 03/10/20 01:12 EST Ur Barbiturates Screen Presumptive negative 03/10/20 01:12 EST Ur Phencyclidine Scrn Presumptive negative 03/10/20 01:12 EST Ur Amphetamines Screen Presumptive negative 03/10/20 01:12 EST U Benzodiazepines Scrn Presumptive negative 03/10/20 01:12 EST Urine Cocaine Screen Presumptive positive 03/10/20 01:12 EST U Marijuana (THC) Screen Presumptive positive 03/10/20 01:12 EST Drugs of Abuse Note Disclamer 03/10/20 01:12 EST Plasma/Serum Alcohol < 0.01 % (0-0.07) 03/09/20 18:00 [place]/IV: Voiding Method Urinal IV Catheter Type [Right Hand] INT / Saline Lock Active Medications - Current Medications Current Medications: Generic Name Dose Route Start Last Admin Trade Name Freq PRN Reason Stop Dose Admin Acetaminophen 650 mg 03/09/20 21:41 03/11/20 04:58 Tylenol PO 650 mg Q4H PRN Administration Pain MILD(1-3)/Fever >100.5/SHRESTHA Apixaban 5 mg 03/10/20 22:00 03/10/20 21:20 Eliquis PO 5 mg Q12HR RONDA Administration Protocol Arformoterol Tartrate 15 mcg 03/10/20 08:00 03/11/20 07:33 Brovana Nebu IH 15 mcg Q12HRT RONDA Administration Atorvastatin Calcium 40 mg 03/10/20 22:00 03/10/20 21:20 Lipitor PO 40 mg QHS RONDA Administration Budesonide 0.5 mg 03/10/20 08:00 03/11/20 07:33 Pulmicort IH 0.5 mg Q12HRT RONDA Administration Furosemide 40 mg 03/10/20 06:00 03/11/20 05:00 Lasix IV 40 mg BID@0600,1800 RONDA Administration Hydralazine HCl 25 mg 03/10/20 14:00 03/11/20 05:00 Apresoline PO 25 mg Q8HR RONDA Administration Magnesium Hydroxide 30 ml 03/09/20 21:41 Milk Of Magnesia PO Q4H PRN Constipation Ondansetron HCl 4 mg 03/09/20 21:41 Zofran IV Q8H PRN Nausea And Vomiting Sodium Chloride 10 ml 03/09/20 22:00 03/10/20 21:21 Sodium Chloride Flush Syringe 10 Ml IV 10 ml BID RONDA Administration Sodium Chloride 10 ml 03/09/20 21:41 03/10/20 05:58 Sodium Chloride Flush Syringe 10 Ml IV 10 ml PRN PRN Administration LINE FLUSH Trazodone HCl 50 mg 03/10/20 22:00 03/10/20 21:20 Desyrel PO 50 mg QHS RONDA Administration
[2020-03-11] MEDS: APIXABAN 5 MG TAB PO SCH ×2 (09:43→21:22)
--- NOTE | 2020-03-11 10:47 | Progress Note ---
Assessment and Plan Continue IV Lasix BID with strict I/Os for now. Closely monitor renal indices. Plan to transition to PO Torsemide in AM. Will optimize antihypertensive regimen. Pt seen in conjunction with Dr. Kary Kang, who agrees with the assessment and plan of care. - Patient Problems (1) Acute and chronic respiratory failure ([id number]) Current Visit: Yes Status: Acute Plan to address problem: on 3L home O2 (2) Acute on chronic heart failure with preserved ejection fraction (HFpEF) Current Visit: Yes Status: Acute (3) CKD (chronic kidney disease) Current Visit: Yes Status: Resolved (4) NSTEMI (non-ST elevated myocardial infarction) Current Visit: Yes Status: Acute Plan to address problem: Type 2 (5) COPD (chronic obstructive pulmonary disease) Current Visit: Yes Status: Chronic (6) Sleep apnea Current Visit: Yes Status: Chronic Qualifiers: Sleep apnea type: central sleep apnea associated with underlying condition Qualified Code(s): G47.37 - Central sleep apnea in conditions classified elsew ere Plan to address problem: uses CPAP (7) HTN (hypertension) Current Visit: Yes Status: Chronic Qualifiers: Hypertension type: essential hypertension Qualified Code(s): I10 - Essential (primary) hypertension (8) Paroxysmal atrial flutter Current Visit: Yes Status: Chronic Plan to address problem: on Eliquis (9) History of cocaine use Current Visit: No Status: Chronic Subjective Date of service: 03/11/20 Principal diagnosis: A/C HFpEF Interval history: Pt resting comfortably in bedside chair upon exam. He states he had a rough night and was unable to sleep due to difficulty breathing. No additional complaints. Tele reviewed - SR 70s w/PVCs. Objective Last Vital Signs Temp 97.4 F L 03/11/20 08:31 Pulse 74 03/11/20 08:31 Resp 22 03/11/20 08:31 BP 164/101 03/11/20 08:31 Pulse Ox 96 03/11/20 08:31 - Physical Examination General: No Apparent Distress HEENT: Positive: EOMI, Normocephaly, Mucus Membranes Moist Neck: Positive: neck supple, trachea midline. Negative: JVD/HJR Cardiac: Positive: Reg Rate and Rhythm, S1/S2 Lungs: Positive: clear to auscultation Neuro: Positive: Grossly Intact Abdomen: Positive: Soft, Active Bowel Sounds. Negative: Tender, Distended Skin: Positive: Clear Musculoskeletal: No Pain, Normal Range of Motion Extremities: Present: upper extr. pulses, lower extr. pulses. Absent: edema - Labs and Meds CBC 03/11/20 Range/Units 04:55 WBC 9.9 (4.5-11.0) K/mm3 RBC 5.42 H (3.65-5.03) M/mm3 Hgb 14.8 (11.8-15.2) gm/dl Hct 45.5 (35.5-45.6) % Plt Count 145 (140-440) K/mm3 Lymph # (Auto) 0.9 L (1.2-5.4) K/mm3 [place] # (Auto) 0.9 H (0.0-0.8) K/mm3 Eos # (Auto) 0.1 (0.0-0.4) K/mm3 Baso # (Auto) 0.0 (0.0-0.1) K/mm3 Comprehensive Metabolic Panel 03/11/20 Range/Units 04:55 Sodium 143 (137-145) mmol/L Potassium 3.9 (3.6-5.0) mmol/L Chloride 103.4 (98-107) mmol/L Carbon Dioxide 30 (22-30) mmol/L BUN 18 (9-20) mg/dL Creatinine 1.4 H (0.8-1.3) mg/dL Glucose 104 H (75-100) mg/dL Calcium 8.9 (8.4-10.2) mg/dL - Imaging and Cardiology EKG: report reviewed, image reviewed Stress echo: report reviewed (Dobutamine stress test 2018 - mild anterior wall ischemia) Echo: report reviewed (06/2019 - normal LV function, impaired relaxation pattern) - Telemetry EKG Rhythm: Sinus Rhythm - EKG Sinus rhythms and dysrhythmias: sinus rhythm Chamber hypertrophy or enlargement: left ventricular hypertro Repolarization changes or abnormalities: nonspecific abnormality, ST segment, and/or T wave
--- NOTE | 2020-03-11 13:18 | Ultrasound Report ---
ULTRASOUND RENAL INDICATION: Elevated troponin. Abnormal renal function testing. COMPARISON: No relevant prior imaging study available. FINDINGS: RIGHT KIDNEY: Size: 11.8 x 5.5 cm. Echogenicity: Normal. Cortical thickness: Normal, 1.5 cm. Hydronephrosis: None. Cyst or mass: None. Stones: None. LEFT KIDNEY: Size: 10.0 x 5.7 cm. Echogenicity: Normal. Cortical thickness: Normal, 1.6 cm. Hydronephrosis: None. Cyst or mass: None. Stones: None. Urinary Bladder: No significant abnormality. Free Fluid: None. Additional Findings: None. IMPRESSION 1. No acute sonographic abnormality of the kidneys. Signer Name: Terry Landis MD Signed: 03/11/2020 1:13 PM Workstation Name: [id number]
[2020-03-11] MEDS ORDERED: hydrALAZINE 20 MG/1 ML INJ IV PRN (18:47)
[2020-03-11] MEDS ORDERED: FLUTICASONE PROPIONATE NASAL SPRAY 16 GM NS PRN (18:49)
[2020-03-11] MEDS: traZODone 50 MG TAB PO SCH (21:22)
[2020-03-11] MEDS: METOPROLOL TARTRATE 25 MG TAB PO SCH (21:22)
[2020-03-12] MEDS: hydrALAZINE 25 MG TAB PO SCH (05:31)
[2020-03-12] MEDS ORDERED: TORSEMIDE 100 MG TAB PO SCH (06:00)
--- NOTE | 2020-03-12 09:02 | Progress Note ---
Assessment and Plan Assessment and plan: Acute on chronic hypoxic respiratory failure. Etiology is multifactorial secondary to COPD exacerbation, obstructive sleep apnea and heart failure. Continue O2 to maintain sats greater than 92%. Patient is on home O2 of 3 L. Acute diastolic heart failure. Echocardiogram from September 2018 revealed mild to moderate concentric left ventricular hypertrophy with an EF of 50 to 55%. Abnormal left ventricular diastolic function. Patient with elevated BNP of 1640. Continue diuresis with Lasix. Cardiology consultation Acute COPD exacerbation. Continue Brovana/Pulmicort/bronchodilators Chronic kidney disease. Patient with a baseline creatinine of approximately 2.0 since 2018. Elevated troponin. Patient appears to have chronically elevated troponin. Patient noted to have troponin of 0.05 a back in 2018. Etiology likely secondary to chronic kidney disease. Cardiology consultation pending. Obstructive sleep apnea. Continue CPAP. 03/11/2020. Cardiology recommends to continue Lasix twice daily and change back to torsemide 100 mg every other day continue Lipitor continue hydralazine con tinue Eliquis 5 mg twice a day. Patient likely has CKD with baseline creatinine of approximately 2.0 in 2018. We will check renal ultrasound for further evaluation. 03/12/2020; Cardiology recommends to continue Lasix twice daily and change back to torsemide 100 mg every other day continue Lipitor continue hydralazine continue Eliquis 5 mg twice a day. Patient likely has CKD with baseline creati nine of approximately 2.0 in 2018. We will check renal ultrasound for further evaluation. Possible discharge today History Interval history: No issues overnight Hospitalist Physical - Physical exam Narrative exam: Not in cardiopulmonary distress. The patient appeared well nourished and normally developed. Vital signs as documented. Head exam is unremarkable. No scleral icterus . Neck is without jugular venous distension, thyromegaly, or carotid bruits. Lungs are clear to auscultation. Cardiac exam reveals regular rate and Rhythm. Abdominal exam reveals normal bowel sounds, nontender, no organomegaly. Extremities are nonedematous and both femoral and pedal pulses are normal. 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 - Constitutional Vitals: Temp Pulse Resp BP Pulse Ox 98.2 F 60 19 140/86 99 03/12/20 03:28 03/12/20 08:02 03/12/20 03:28 03/12/20 03:28 03/12/20 08:02 General appearance: Present: no acute distress, well-nourished HEART Score - HEART Score Troponin: Troponin T 0.062 ng/mL (0.00-0.029) H D 03/10/20 00:15 Results - Labs CBC & Chem 7: 03/11/20 04:55 03/11/20 04:55 Labs: Laboratory Last Values WBC 9.9 K/mm3 (4.5-11.0) 03/11/20 04:55 RBC 5.42 M/mm3 (3.65-5.03) H 03/11/20 04:55 Hgb 14.8 gm/dl (11.8-15.2) 03/11/20 04:55 Hct 45.5 % (35.5-45.6) 03/11/20 04:55 MCV 84 fl (84-94) 03/11/20 04:55 MCH 27 pg (28-32) L 03/11/20 04:55 MCHC 32 % (32-34) 03/11/20 04:55 RDW 19.1 % (13.2-15.2) H 03/11/20 04:55 Plt Count 145 K/mm3 (140-440) 03/11/20 04:55 Lymph % (Auto) 9.5 % (13.4-35.0) L 03/11/20 04:55 [place] % (Auto) 8.7 % (0.0-7.3) H 03/11/20 04:55 Eos % (Auto) 0.6 % (0.0-4.3) 03/11/20 04:55 Baso % (Auto) 0.2 % (0.0-1.8) 03/11/20 04:55 Lymph # (Auto) 0.9 K/mm3 (1.2-5.4) L 03/11/20 04:55 [place] # (Auto) 0.9 K/mm3 (0.0-0.8) H 03/11/20 04:55 Eos # (Auto) 0.1 K/mm3 (0.0-0.4) 03/11/20 04:55 Baso # (Auto) 0.0 K/mm3 (0.0-0.1) 03/11/20 04:55 Seg Neutrophils % 81.0 % (40.0-70.0) H 03/11/20 04:55 Seg Neutrophils # 8.0 K/mm3 (1.8-7.7) H 03/11/20 04:55 PT 15.9 Sec. (12.2-14.9) H 03/10/20 02:05 INR 1.24 (0.87-1.13) H 03/10/20 02:05 APTT 37.0 Sec. (24.2-36.6) H 03/09/20 18:00 Sodium 143 mmol/L (137-145) 03/11/20 04:55 Potassium 3.9 mmol/L (3.6-5.0) 03/11/20 04:55 Chloride 103.4 mmol/L (98-107) 03/11/20 04:55 Carbon Dioxide 30 mmol/L (22-30) 03/11/20 04:55 Anion Gap 14 mmol/L 03/11/20 04:55 BUN 18 mg/dL (9-20) 03/11/20 04:55 Creatinine 1.4 mg/dL (0.8-1.3) H 03/11/20 04:55 Estimated GFR > 60 ml/min 03/11/20 04:55 BUN/Creatinine Ratio 13 % 03/11/20 04:55 Glucose 104 mg/dL (75-100) H 03/11/20 04:55 Calcium 8.9 mg/dL (8.4-10.2) 03/11/20 04:55 Magnesium 2.30 mg/dL (1.7-2.3) 03/09/20 18:00 Total Bilirubin 1.50 mg/dL (0.1-1.2) H 03/09/20 18:00 AST 23 units/L (5-40) 03/09/20 18:00 ALT 29 units/L (7-56) 03/09/20 18:00 Alkaline Phosphatase 145 units/L (35-129) H 03/09/20 18:00 Total Creatine Kinase 192 units/L (55-170) H 03/09/20 18:00 Troponin T 0.062 ng/mL (0.00-0.029) H D 03/10/20 00:15 NT-Pro-B Natriuret Pep 1640 pg/mL (0-900) H 03/09/20 18:00 Total Protein 7.5 g/dL (6.3-8.2) 03/09/20 18:00 Albumin 3.8 g/dL (3.9-5) L 03/09/20 18:00 Albumin/Globulin Ratio 1.0 % 03/09/20 18:00 Triglycerides 60 mg/dL (2-149) 03/09/20 18:00 Cholesterol 104 mg/dL (50-199) 03/09/20 18:00 LDL Cholesterol Direct 45 mg/dL (50-130) L 03/09/20 18:00 HDL Cholesterol 53 mg/dL (40-59) 03/09/20 18:00 Cholesterol/HDL Ratio 1.96 % 03/09/20 18:00 Urine Opiates Screen Presumptive negative 03/10/20 01:12 EST Urine Methadone Screen Presumptive negative 03/10/20 01:12 EST Ur Barbiturates Screen Presumptive negative 03/10/20 01:12 EST Ur Phencyclidine Scrn Presumptive negative 03/10/20 01:12 EST Ur Amphetamines Screen Presumptive negative 03/10/20 01:12 EST U Benzodiazepines Scrn Presumptive negative 03/10/20 01:12 EST Urine Cocaine Screen Presumptive positive 03/10/20 01:12 EST U Marijuana (THC) Screen Presumptive positive 03/10/20 01:12 EST Drugs of Abuse Note Disclamer 03/10/20 01:12 EST Plasma/Serum Alcohol < 0.01 % (0-0.07) 03/09/20 18:00 [place]/IV: Voiding Method Urinal IV Catheter Type [Right Hand] INT / Saline Lock Active Medications - Current Medications Current Medications: Generic Name Dose Route Start Last Admin Trade Name Freq PRN Reason Stop Dose Admin Acetaminophen 650 mg 03/09/20 21:41 03/11/20 21:23 Tylenol PO 650 mg Q4H PRN Administration Pain MILD(1-3)/Fever >100.5/SHRESTHA Apixaban 5 mg 03/10/20 22:00 03/11/20 21:22 Eliquis PO 5 mg Q12HR RONDA Administration Protocol Arformoterol Tartrate 15 mcg 03/10/20 08:00 03/11/20 21:39 Brovana Nebu IH 15 mcg Q12HRT RONDA Administration Atorvastatin Calcium 40 mg 03/10/20 22:00 03/11/20 21:22 Lipitor PO 40 mg QHS RONDA Administration Budesonide 0.5 mg 03/10/20 08:00 03/11/20 21:39 Pulmicort IH 0.5 mg Q12HRT RONDA Administration Fluticasone Propionate 100 mcg 03/11/20 18:49 Flonase NS QDAY PRN Congestion Hydralazine HCl 25 mg 03/10/20 14:00 03/12/20 05:31 Apresoline PO 25 mg Q8HR RONDA Administration Hydralazine HCl 2 mg 03/11/20 18:47 Apresoline IV Q6HR PRN Blood Pressure Magnesium Hydroxide 30 ml 03/09/20 21:41 Milk Of Magnesia PO Q4H PRN Constipation Metoprolol Tartrate 12.5 mg 03/11/20 22:00 03/11/20 21:22 Metoprolol PO 12.5 mg BID RONDA Administration Ondansetron HCl 4 mg 03/09/20 21:41 Zofran IV Q8H PRN Nausea And Vomiting Sodium Chloride 10 ml 03/09/20 22:00 03/11/20 21:23 Sodium Chloride Flush Syringe 10 Ml IV 10 ml BID RONDA Administration Sodium Chloride 10 ml 03/09/20 21:41 03/10/20 05:58 Sodium Chloride Flush Syringe 10 Ml IV 10 ml PRN PRN Administration LINE FLUSH Torsemide 100 mg 03/12/20 06:00 03/12/20 05:30 Demadex PO 100 mg DAILY@0600 RONDA Administration Trazodone HCl 50 mg 03/10/20 22:00 03/11/20 21:22 Desyrel PO 50 mg QHS RONDA Administration
[2020-03-12] MEDS: APIXABAN 5 MG TAB PO SCH (09:30)
[2020-03-12 09:31] VITALS: BP 159/95
[2020-03-12] MEDS: METOPROLOL TARTRATE 25 MG TAB PO SCH (09:31)
[2020-03-12] MEDS: ARFORMOTEROL 15 MCG/2 ML NEBU IH SCH (10:01)
[2020-03-12] MEDS: BUDESONIDE 0.5 MG/2 ML NEBU IH SCH (10:01)
--- NOTE | 2020-03-12 10:17 | Discharge Summary ---
Providers - Providers Date of Admission: 03/09/20 21:24 Date of discharge: 03/12/20 Attending physician: YONI RAYGOZA MD 03/09/20 19:47 Consult to Physician [CONS] Urgent Comment: Consulting Provider: BRI OBANDO Physician Instructions: Reason For Exam: chf exacerbation Hospitalization Reason for admission: CHF exacerbation Condition: Stable Hospital course: Acute on chronic hypoxic respiratory failure. Etiology is multifactorial secondary to COPD exacerbation, obstructive sleep apnea and heart failure. Continue O2 to maintain sats greater than 92%. Patient is on home O2 of 3 L. Acute diastolic heart failure. Echocardiogram from September 2018 revealed mild to moderate concentric left ventricular hypertrophy with an EF of 50 to 55%. Abnormal left ventricular diastolic function. Patient with elevated BNP of 1640. Continue diuresis with Lasix. Cardiology consultation Acute COPD exacerbation. Continue Brovana/Pulmicort/bronchodilators Chronic kidney disease. Patient with a baseline creatinine of approximately 2.0 since 2018. Elevated troponin. Patient appears to have chronically elevated troponin. Patient noted to have troponin of 0.05 a back in 2018. Etiology likely secondary to chronic kidney disease. Cardiology consultation pending. Obstructive sleep apnea. Continue CPAP. 03/11/2020. Cardiology recommends to continue Lasix twice daily and change back to torsemide 100 mg every other day continue Lipitor continue hydralazine continue Eliquis 5 mg twice a day. Patient likely has CKD with baseline creatinine of approximately 2.0 in 2018. We will check renal ultrasound for further evaluation. Acute on chronic hypoxic respiratory failure. Etiology is multifactorial secondary to COPD exacerbation, obstructive sleep apnea and heart failure. Continue O2 to maintain sats greater than 92%. Patient is on home O2 of 3 L. Acute diastolic heart failure. Echocardiogram from September 2018 revealed mild to moderate concentric left ventricular hypertrophy with an EF of 50 to 55%. Abnormal left ventricular diastolic function. Patient with elevated BNP of 1640. Continue diuresis with Lasix. Cardiology consultation Acute COPD exacerbation. Continue Brovana/Pulmicort/bronchodilators Chronic kidney disease. Patient with a baseline creatinine of approximately 2.0 since 2018. Elevated troponin. Patient appears to have chronically elevated troponin. Patient noted to have troponin of 0.05 a back in 2018. Etiology likely secondary to chronic kidney disease. Cardiology consultation pending. Obstructive sleep apnea. Continue CPAP. 03/11/2020. Cardiology recommends to continue Lasix twice daily and change back to torsemide 100 mg every other day continue Lipitor continue hydralazine continue Eliquis 5 mg twice a day. Patient likely has CKD with baseline creatinine of approximately 2.0 in 2018. Cardiology was consulted and recommend to discharge the patient to tprsemide 100 mg daily. Cr improved. patient discharged home in a stable condition. Patient uses home O2. SOB and leg swelling resolved. Disposition: DC-01 TO HOME OR SELFCARE Time spent for discharge: 34 minutes - Discharge Diagnoses (1) Acute and chronic respiratory failure ([id number]) Status: Acute (2) Acute on chronic heart failure with preserved ejection fraction (HFpEF) Status: Acute (3) Acute on chronic renal failure Status: Acute Qualifiers: Acute renal failure type: with acute tubular necrosis Chronic kidney disease stage: stage 3 (moderate) Core Measure Documentation - Palliative Care Palliative Care/ Comfort Measures: Not Applicable - Core Measures Any of the following diagnoses?: none Exam - Physical Exam Narrative exam: Not in cardiopulmonary distress. The patient appeared well nourished and normally developed. Vital signs as documented. Head exam is unremarkable. No scleral icterus . Neck is without jugular venous distension, thyromegaly, or carotid bruits. Lungs are clear to auscultation. Cardiac exam reveals regular rate and Rhythm. Abdominal exam reveals normal bowel sounds, nontender, no organomegaly. Extremities are nonedematous and both femoral and pedal pulses are normal. 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 - Constitutional Vitals: Temp Pulse Resp BP Pulse Ox 97.2 F L 63 18 159/95 98 03/12/20 08:03 03/12/20 10:00 03/12/20 10:00 03/12/20 09:31 03/12/20 10:00 Plan Activity: no restrictions Weight Bearing Status: Full Weight Bearing Diet: low salt Follow up with: MAYANK LUNDBERG [Other] - 7 Days Prescriptions: Torsemide [Demadex] 100 mg PO DAILY@0600 #30 tablet
--- NOTE | 2020-03-12 12:39 | Progress Note ---
Assessment and Plan Continue PO Torsemide and other present cardiac mgmt. Pt may be discharged from a Cardiology perspective. Follow-up with [facility] at [facility] within 1-2 weeks of discharge. Recommend consideration of outpatient ischemic eval/stress test - will defer to [facility]. Discussed with pt. Pt seen in conjunction with Dr. Kary Kang, who agrees with the assessment and plan of care. - Patient Problems (1) Acute and chronic respiratory failure ([id number]) Current Visit: Yes Status: Acute Plan to address problem: on 3L home O2 (2) Acute on chronic heart failure with preserved ejection fraction (HFpEF) Current Visit: Yes Status: Acute (3) CKD (chronic kidney disease) Current Visit: Yes Status: Resolved (4) NSTEMI (non-ST elevated myocardial infarction) Current Visit: Yes Status: Acute Plan to address problem: Type 2 (5) COPD (chronic obstructive pulmonary disease) Current Visit: Yes Status: Chronic (6) Sleep apnea Current Visit: Yes Status: Chronic Qualifiers: Sleep apnea type: central sleep apnea associated with underlying condition Qualified Code(s): G47.37 - Central sleep apnea in conditions classified elsewhere Plan to address problem: uses CPAP (7) HTN (hypertension) Current Visit: Yes Status: Chronic Qualifiers: Hypertension type: essential hypertension Qualified Code(s): I10 - Essential (primary) hypertension (8) Paroxysmal atrial flutter Current Visit: Yes Status: Chronic Plan to address problem: on Eliquis (9) 1st degree AV block Current Visit: Yes Status: Chronic (10) History of cocaine use Current Visit: Yes Status: Chronic Subjective Date of service: 03/12/20 Principal diagnosis: A/C HFpEF Interval history: Pt resting comfortably in bedside chair upon exam. SOB has improved significantly. No additional cardiac complaints. Tele reviewed - SR 60-70s w/PVCs, ~2 sec pause noted overnight @ 0257. Objective Last Vital Signs Temp 97.2 F L 03/12/20 08:03 Pulse 63 03/12/20 10:00 Resp 18 03/12/20 10:00 BP 159/95 03/12/20 09:31 Pulse Ox 98 03/12/20 10:00 - Physical Examination General: No Apparent Distress HEENT: Positive: EOMI, Normocephaly, Mucus Membranes Moist Neck: Positive: neck supple, trachea midline. Negative: JVD/HJR Cardiac: Positive: Reg Rate and Rhythm, S1/S2 Lungs: Positive: clear to auscultation Neuro: Positive: Grossly Intact Abdomen: Positive: Soft, Active Bowel Sounds. Negative: Tender Skin: Negative: Rash Musculoskeletal: No Pain Extremities: Present: upper extr. pulses, lower extr. pulses. Absent: edema - Imaging and Cardiology EKG: report reviewed, image reviewed Stress echo: report reviewed (Dobutamine stress test 2018 - mild anterior wall ischemia) Echo: report reviewed (06/2019 - normal LV function, impaired relaxation pattern) - Telemetry EKG Rhythm: Sinus Rhythm - EKG Sinus rhythms and dysrhythmias: sinus rhythm Chamber hypertrophy or enlargement: left ventricular hypertro Repolarization changes or abnormalities: nonspecific abnormality, ST segment, and/or T wave
== END 2020-03-12 14:50 | disposition home or self-care (01) | DRG 280 ==
LOC: ED 17:27 → OBSVTOIN 21:24 → 4A 21:24
PROVIDERS: ADMIT Internal Medicine Geriatric Medicine; ATTEND Internal Medicine
PROC: 5A09457 Assistance with Respiratory Ventilation, 24-96 Consecutive Hours, Continuous Positive Airway Pressure (ICD-10-PCS; principal; 2020-03-09)
DX: I13.0 Hypertensive heart and chronic kidney disease with heart failure and stage 1 through stage 4 chronic kidney disease, or unspecified chronic kidney disease (principal); I21.A1 Myocardial infarction type 2; J96.21 Acute and chronic respiratory failure with hypoxia; N17.0 Acute kidney failure with tubular necrosis; I50.33 Acute on chronic diastolic (congestive) heart failure; E87.6 Hypokalemia; J44.1 Chronic obstructive pulmonary disease with (acute) exacerbation; E66.9 Obesity, unspecified; E78.5 Hyperlipidemia, unspecified; I48.0 Paroxysmal atrial fibrillation; G47.33 Obstructive sleep apnea (adult) (pediatric); I48.92 Unspecified atrial flutter; I44.0 Atrioventricular block, first degree; N18.30 Chronic kidney disease, stage 3 unspecified; K76.6 Portal hypertension; Z88.8 Allergy status to other drugs, medicaments and biological substances; Z79.899 Other long term (current) drug therapy; Z91.14 Patient's other noncompliance with medication regimen; Z87.891 Personal history of nicotine dependence; Z68.38 Body mass index [BMI] 38.0-38.9, adult
CPT/HCPCS: 36415; 71045; 76770; 80048; 80053; 80061; 80307; 80320; 82550; 83735; 83880; 84484; 85025; 85610; 85730; 93005; 94640; 94644; 94660; 94760; 96374; 96375; G0378; A9270-GY; G0480; J1644; J1940; J2270; J3480; J7050